=== PATIENT | female | born 1935 | race Caucasian/White ===

== ENCOUNTER 2016-11-01 22:10 | Observation (INO) | payer OTHER ==
--- NOTE | 2016-11-01 22:13 | EDPHY ---
H & P HPI/ROS: HPI CHIEF COMPLAINT: Multiple complaints, left-sided weakness HISTORY OF PRESENT ILLNESS: This patient 80-year-old female significant past medical history for CVA, TIA, hypertension, chronic kidney disease and vertigo, she presents emergency room by EMS, it is noted the patient is a very poor historian. She tells me when I ask her why she came to the emergency room "I do not know" upon further discussion with the patient she does tell me that she has a history of stroke and left-sided weakness, however her weakness of her left side may be more pronounced than normal. She tells me she does not know exactly how long she has been more weak on her left side. She also tells me that she has a fluttering and some discomfort in left side of her chest. Unclear exactly how long this has been going on either. It is noted that she is a very poor historian history review of systems are limited due to this. Her granddaughter just arrived at bedside shortly after arrival her granddaughter is unsure of what prompted a 911 call. It is noted that the daughter should be arriving shortly. Past Medical History: Vertigo, CVA, TIA, hypertension, macular degeneration, chronic kidney disease Past Surgical History: No recent surgical history Social History: Denies daily use of drugs alcohol tobacco products, lives with daughter, lives locally Family History: Noncontributory ROS REVIEW OF SYSTEMS: A comprehensive 10 point review of systems is otherwise negative aside from elements mentioned in the history of present illness. Exam Constitutional triage nursing summary reviewed, vital signs reviewed, awake/ alert. (HYPERTENSIVE) Eyes normal conjunctivae and sclera, EOMI, PERRLA. HENT normal inspection, atraumatic, moist mucus membranes, no epistaxis, neck supple/ no meningismus, no raccoon eyes. Respiratory clear to auscultation bilaterally, normal breath sounds, no respiratory distress, no wheezing. Cardiovascular rate normal, regular rhythm, no murmur, no edema, distal pulses normal. Gastrointestinal large abdominal hernia, soft reducible, non-tender, no rebound, no guarding, normal bowel sounds, no distension, no pulsatile mass. Genitourinary no CVA tenderness. Musculoskeletal no midline vertebral tenderness, full range of motion, no calf swelling, no tenderness of extremities, no meningismus, good pulses, neurovascularly intact. Skin pink, warm, & dry, no rash, skin atraumatic. Neurologic awake, alert and oriented x 3, AAOx3, this patient has a left- sided weakness left upper extremity and left lower extremity 3+ out of 5 left upper extremity 3+ out of 5 left lower extremity, otherwise unremarkable neurological exam. motor intact, sensory intact, CN II-XII intact, normal cerebellar, normal vision, normal speech. Psychiatric normal mood/affect. Heme/Lymph/Immune no lymphadenopathy. Differential Diagnosis: is not limited to in a particular order, CVA, TIA, intracranial bleed, hypertensive urgency, ACS, electrolyte disturbance, infection, dehydration Medical Decision Making: Plan for this patient given her left-sided weakness that is more pronounced than normal however unknown timing of this I have called a stroke alert. Will need to obtain more information from her daughter when she arrives. Re-evaluation: 2234: Stroke Alert called. 2245: At this time the daughters arrived at bedside is given me much more history. She reports that 330 this afternoon she noticed her mother shaking and trouble with her speech, had hard time getting words out, this lasted 5 minutes, the patient did not want come to the emergency room at that time her daughter did notice at that time that she had some left-sided weakness of her leg and arm. The patient feels come to the hospital that time. At 5:30 a.m. she had 2 episodes of vomiting. She went to lay down and slept. She had another 2 episodes of vomiting around 930. That is when her daughter decided to call 911. Upon arrival here in the emergency room she did arrive by ambulance very poor historian does have left-sided upper extremity left lower extremity weakness. Daughter reports to me that time of onset was 330 this afternoon. She has not had any change in her speech since then or other complaints except vomiting nausea and left-sided weakness. To the time of onset witnessed by her daughter 330 this afternoon she is outside of the tPA window. I have canceled the stroke alert at this time. 2252. CT scan of the head without IV contrast. The results of the study are no evidence of acute bleed or stroke.. The study was read by Dr. Bahena. I viewed the images myself on the PACS system. EKG interpretation by me on record in [facility] system. Impression time of EKG 2253, sinus rhythm rate of 71 no acute ischemia visualized. 2328: Spoke with Dr. Price agrees to admit this patient. I have updated the patient and family at bedside. Reason for admission left-sided weakness. Again she is outside of the tPA window this is the reason she was not given tPA. Her time of onset of symptoms according to her daughter was 3:[address] scan has been reviewed shows no evidence of bleed or stroke. Patient be admitted for left-sided weakness. Will need further stroke evaluation. Also noted her blood pressure was high 220s this has improved to 1 80s without acute intervention. 2328: At this time patient is neurological exam is unchanged she has no further progression of neurological deficits. Left-sided is weak. Her initial NIH stroke scale is: 4 (drift left upper arm 2+ and Drift of LLE: 2+ ) Patient agrees for admission. Family updated. Source: Patient, EMS - Medical/Surgical History Hx Asthma: No Hx Chronic Respiratory Disease: No Hx Diabetes: Yes Hx Cardiac Disease: Yes Hx Renal Disease: No Hx Cirrhosis: No Hx Alcoholism: No Hx HIV/AIDS: No Hx Splenectomy or Spleen Trauma: No Other PMH: PMH- CVA- MULTIPLE, HYPOTHYROID, HTN, HLD, ARF, Afib; Hernia, borderline dm. PSH- ABD SURGERY W/ DEHISCENCE 03/16/14; B eye, - Social History Smoking Status: Never smoked Constitutional: Initial Vital Signs Temperature (C) 36.6 C 11/01/16 22:24 Heart Rate 80 11/01/16 22:24 Respiratory Rate 18 11/01/16 22:24 Blood Pressure 202/102 H 11/01/16 22:24 O2 Sat (%) 92 11/01/16 22:24 O2 Delivery Mode Room Air Allergies/Adverse Reactions: Penicillins Allergy (Unknown, Verified 11/06/14 10:17) Doesn't Remember RXN BEES Allergy (Uncoded 08/24/13 14:09) TAPE Allergy (Uncoded 08/24/13 14:09) Home Medications: Medication Instructions Recorded Atorvastatin Calcium [Lipitor 40 40 mg PO DAILY@18 09/13/14 mg (*)] Beta-Carotene(A) W-C & E/Min 1 tab PO DAILY 09/13/14 [Ocuvite] Levothyroxine [Synthroid 125 mcg 125 mcg PO DAILY06 03/16/15 (*)] Metoprolol Tartrate [Lopressor 25 25 mg PO BIDMEAL 09/13/14 mg (*)] Multivitamins [Multivitamin (*)] 1 tab PO DAILY 09/13/14 Omeprazole [Prilosec 20 mg] 20 mg PO DAILY@18 09/13/14 Timolol 0.5% [TIMOPTIC 0.5% (*)] 1 drops EACHEYE BID 09/13/14 amLODIPine BESYLATE [Norvasc 5 mg 5 mg PO DAILY@18 09/13/14 (*)] Acetamn/Diphenhydramine 500/25 2 each PO HS PRN 11/06/14 [Tylenol PM (*)] Aspirin [Aspirin 81mg (*)] 81 mg PO DAILY #0 tab 11/07/14 Clopidogrel Bisulfate [Plavix (*)] 75 mg PO DAILY #30 tab 11/07/14 Cholecalciferol Vit D3 [Vitamin D3 10,000 units PO DAILY 10/02/15 2000 units] Medical Decision Making - Diagnostics Imaging Results: Imaging Impressions Chest X-Ray 11/01/16 22:29 Impression: Normal. Head CT 11/01/16 22:29 Impression: 1. Moderate Atrophy and microvascular ischemic disease. 2. Old left occipital stroke. 3. No evidence for acute stroke on this noncontrasted CT scan. Findings and recommendations discussed with Kevin Hancock MD at 2248 hour, . Final report concurs with initial preliminary interpretation. - Data Points Laboratory Results: Laboratory Results 11/01/16 23:16 11/01/16 22:25 11/01/16 11/01/16 11/01/16 23:16 23:16 22:28 WBC 7.69 10^3/uL 10^3/uL (3.80-9.50) RBC 4.09 10^6/uL L 10^6/uL (4.18-5.33) Hgb 13.5 g/dL g/dL (12.6-16.3) POC Hgb 15.6 gm/dL gm/dL (12.3-15.9) Hct 41.6 % % (38.0-47.0) POC Hct 46 % % (35.5-47.5) MCV 101.7 fL H fL (81.5-99.8) MCH 33.0 pg pg (27.9-34.1) MCHC 32.5 g/dL g/dL (32.4-36.7) RDW 15.8 % H % (11.5-15.2) Plt Count 259 10^3/uL 10^3/uL (150-400) MPV 10.0 fL fL (8.7-11.7) Neut % (Auto) 79.7 % H % (39.3-74.2) Lymph % (Auto) 13.0 % L % (15.0-45.0) [place] % (Auto) 6.0 % % (4.5-13.0) Eos % (Auto) 0.4 % L % (0.6-7.6) Baso % (Auto) 0.5 % % (0.3-1.7) Nucleat RBC Rel Count 0.0 % % (0.0-0.2) Absolute Neuts (auto) 6.13 10^3/uL 10^3/uL (1.70-6.50) Absolute Lymphs (auto) 1.00 10^3/uL 10^3/uL (1.00-3.00) Absolute Monos (auto) 0.46 10^3/uL 10^3/uL (0.30-0.80) Absolute Eos (auto) 0.03 10^3/uL 10^3/uL (0.03-0.40) Absolute Basos (auto) 0.04 10^3/uL 10^3/uL (0.02-0.10) Absolute Nucleated RBC 0.00 10^3/uL 10^3/uL (0-0.01) Immature Gran % 0.4 % % (0.0-1.1) Immature Gran # 0.03 10^3/uL 10^3/uL (0.00-0.10) PT Pending INR Pending POC Sodium 144 mEq/L mEq/L (134-144) Sodium POC Potassium 4.7 mEq/L mEq/L (3.3-5.0) Potassium POC Chloride 112 mEq/L H mEq/L (96-108) Chloride Carbon Dioxide Anion Gap POC BUN 28 mg/dL H mg/dL (7-23) BUN Creatinine POC Creatinine 1.6 mg/dL H mg/dL (0.6-1.2) Estimated GFR Glucose POC Glucose 126 mg/dL H mg/dL (70-100) Calcium 11/01/16 11/01/16 11/01/16 22:25 22:25 22:25 WBC REJ RBC REJ Hgb REJ POC Hgb Hct REJ POC Hct MCV REJ MCH REJ MCHC REJ RDW REJ Plt Count REJ MPV REJ Neut % (Auto) REJ Lymph % (Auto) REJ [place] % (Auto) REJ Eos % (Auto) REJ Baso % (Auto) REJ Nucleat RBC Rel Count REJ Absolute Neuts (auto) REJ Absolute Lymphs (auto) REJ Absolute Monos (auto) REJ Absolute Eos (auto) REJ Absolute Basos (auto) REJ Absolute Nucleated RBC REJ Immature Gran % REJ Immature Gran # REJ PT REJ INR REJ POC Sodium Sodium 141 mEq/L mEq/L (134-144) POC Potassium Potassium 4.7 mEq/L mEq/L (3.5-5.2) POC Chloride Chloride 111 mEq/L H mEq/L (97-110) Carbon Dioxide 19 mEq/l L mEq/l (22-31) Anion Gap 11 mEq/L mEq/L (8-16) POC BUN BUN 22 mg/dL mg/dL (7-23) Creatinine 1.5 mg/dL H mg/dL (0.6-1.0) POC Creatinine Estimated GFR 33 Glucose 126 mg/dL H mg/dL (70-100) POC Glucose Calcium 9.2 mg/dL mg/dL (8.5-10.4) Point of Care Test Results: 11/01/16 22:28 POC Sodium 144 POC Potassium 4.7 POC Chloride 112 H POC BUN 28 H POC Creatinine 1.6 H POC Glucose 126 H Departure - Departure Disposition: [facility] Inpatient Acute Clinical Impression: Left-sided weakness Condition: Good Referrals: Patient,NotPresent [Unknown] - As per Instructions
[2016-11-01] MEDS ORDERED: IOPAMIDOL (ISOVUE 370) 100 ML BTL IV ONE (22:32)
[2016-11-01 22:53] LABS: ANION GAP 11 mEq/L (8-16); CALCIUM 9.2 mg/dL (8.5-10.4); CARBON DIOXIDE 19 mEq/l (22-31); CHLORIDE 111 mEq/L (97-110); CREATININE 1.5 mg/dL (0.6-1.0); GLOMERULAR FILTRATION RATE 33; GLUCOSE 126 mg/dL (70-100); POTASSIUM 4.7 mEq/L (3.5-5.2); SODIUM 141 mEq/L (134-144)
--- NOTE | 2016-11-01 23:01 | CPEKG ---
Heart Rate: 71 RR Interval: 845 P-R Interval: 145 QRSD Interval: 76 QT Interval: 400 QTC Interval: 435 P Caney: 19 QRS Caney: -8 T Wave Caney: 56 EKG Severity - NORMAL ECG - EKG Impression: SINUS RHYTHM Electronically Signed By: Kevin Hancock 02-Nov-2016 06:41:08
[2016-11-01 23:23] LABS: % IMMATURE GRANULYOCYTES 0.4 % (0.0-1.1); ABSOLUTE IMMATURE GRANULOCYTES 0.03 10^3/uL (0.00-0.10); ADD DIFF? NO; ADD MORPH? NO; ADD SCAN? NO; ATYPICAL LYMPHOCYTE FLAG 10 (0-99); FRAGMENT RBC FLAG 0 (0-99); HEMATOCRIT 41.6 % (38.0-47.0); HEMOGLOBIN 13.5 g/dL (12.6-16.3); LEFT SHIFT FLG 0 (0-99); LIPEMIA HEMOLYSIS FLAG 80 (0-99); MEAN CELL HEMOGLOBIN CONCENTR. 32.5 g/dL (32.4-36.7); MEAN CELL VOLUME 101.7 fL (81.5-99.8); PLATELET CLUMPS FLAG 0 (0-99); PLATELET COUNT 259 10^3/uL (150-400); RED BLOOD CELL COUNT 4.09 10^6/uL (4.18-5.33); RED CELL DISTRIBUTION WIDTH 15.8 % (11.5-15.2)
[2016-11-01 23:34] LABS: INR 1.04 (0.83-1.16); PROTIME(PATIENT) 13.5 SEC (12.0-15.0)
[2016-11-02] MEDS ORDERED: ACETAMINOPHEN 325 MG TAB PO PRN
[2016-11-02] MEDS ORDERED: oxyCODONE IR 5 MG TAB PO PRN
[2016-11-02] MEDS ORDERED: ONDANSETRON DISINTEGRATING 4 MG TAB PO PRN
[2016-11-02] MEDS ORDERED: ONDANSETRON 4 MG/2 ML VIAL IVP PRN
[2016-11-02] MEDS ORDERED: ASPIRIN EC 325 MG TAB PO ONE (00:03)
[2016-11-02] MEDS: ATORVASTATIN CALCIUM 40 MG TAB PO SCH ×2 (01:07→08:56)
--- NOTE | 2016-11-02 01:10 | PDGENHP ---
History and Physical - Chief Complaint weakness - History of Present Illness Patient is an 80-year-old female with history of mild dementia, previous CVA, reported history of multiple TIAs, hypertension, hypothyroidism and CKD who was brought to the ED due to apparently new left-sided weakness. History is very limited due to patient's baseline dementia, and on my evaluation of the patient her family was not present. Per report, patient was at home with her daughter and granddaughter when around 3:30 p.m. her daughter noticed patient appeared to becomes somewhat unresponsive, with some nonspecific shaking movements and aphasia. This lasted approximately 5 minutes and then resolved, but patient then demonstrated left-sided weakness, apparently more pronounced than her baseline. Patient did not want to come to the ED for evaluation at this time. About 2 hours later patient then began experiencing some nausea and vomiting. Patient states she does occasionally vomit, mostly whitish clear fluid and it is not associated with any abdominal pain or diarrhea. After this second episode of vomiting, her daughter decided to call EMS and she was brought to the ED at around 10:00 p.m. on to the ED patient was noted to be afebrile, markedly hypertensive. on her initial evaluation, she was noted to have left-sided hemiparesis, so stroke alert was activated. CT head noncontrast was obtained did not reveal any obvious hemorrhage or acute infarct. Labs, including CBC, BMP and troponin, were within normal limits. EKG showed sinus rhythm. Given the patient arrived in the ED greater than 4 hours of symptoms after symptom onset, she was deemed to not be a tPA candidate. she was then admitted to the hospital service for further management. History Information - Allergies/Home Medication List Allergies/Adverse Reactions: Penicillins Allergy (Unknown, Verified 11/06/14 10:17) Doesn't Remember RXN BEES Allergy (Uncoded 08/24/13 14:09) TAPE Allergy (Uncoded 08/24/13 14:09) Home Medications: Atorvastatin Calcium [Lipitor 40 mg (*)] 40 mg PO DAILY@18 09/13/14 [Last Taken 09/30/15 18:00] Beta-Carotene(A) W-C & E/Min [Ocuvite] 1 tab PO DAILY 09/13/14 [Last Taken 09/30 08:00] Levothyroxine [Synthroid 125 mcg (*)] 125 mcg PO DAILY06 09/13/14 [Last Taken 07:00] Metoprolol Tartrate [Lopressor 25 mg (*)] 25 mg PO BIDMEAL 09/13/14 [Last Taken 10/01/15 08:00] Multivitamins [Multivitamin (*)] 1 tab PO DAILY 09/13/14 [Last Taken 10/01/15 09 :00] Omeprazole [Prilosec 20 mg] 20 mg PO DAILY@18 09/13/14 [Last Taken 09/30/15 18: 00] Timolol 0.5% [TIMOPTIC 0.5% (*)] 1 drops EACHEYE BID 09/13/14 [Last Taken 08:00] amLODIPine BESYLATE [Norvasc 5 mg (*)] 5 mg PO DAILY@18 09/13/14 [Last Taken 07/16 18:00] Acetamn/Diphenhydramine 500/25 [Tylenol PM (*)] 2 each PO HS PRN 11/06/14 [Last Taken Unknown] Cholecalciferol Vit D3 [Vitamin D3 2000 units] 10,000 units PO DAILY 10/02/15 [ Last Taken 10/01/15 08:00] I have personally reviewed and updated: family history, medical history, social history, surgical history - Past Medical History Additional medical history: mild dementia, previous CVA, reported history of multiple TIAs, hypertension, hypothyroidism, hypothyoidism, CKD, macular degeneration, large abdominal ventral hernia - Surgical History Additional surgical history: multiple abdominal surgeries. history of gastric perforation. gastric bypass. partial colectomy - Family History Positive for: non-pertinent - Social History Smoking Status: Never smoked Alcohol Use: None Drug Use: None Additional social history: patient lives with her daughter and granddaughter in [place]. Originally from [place] uses a walker to ambulate outside of her home. Review of Systems ROS: 10pt was reviewed & negative except for what was stated in HPI & below Physical Exam Temp Pulse Resp BP Pulse Ox 36.6 C 68 16 161/89 H 92 11/01/16 22:24 11/02/16 00:00 11/02/16 00:00 11/02/16 00:00 11/02/16 00:00 Constitutional: no apparent distress, appears nourished, not in pain, obese Eyes: PERRL, anicteric sclera, EOMI Ears, Nose, Mouth, Throat: moist mucous membranes, hearing normal, ears appear normal, no oral mucosal ulcers Cardiovascular: regular rate and rhythym, no murmur, rub, or gallop, pulses symmetric bilaterally, No JVD, No edema Peripheral Pulses: 2+: dorsalis-pedis (R), dorsalis-pedis (L) Respiratory: no respiratory distress, no rales or rhonchi, clear to auscultation Gastrointestinal: normoactive bowel sounds, soft, non-tender abdomen, other ( Large ventral hernia reducible nontender) Genitourinary: no bladder fullness, no bladder tenderness Skin: warm, normal color, no rashes or abrasions, no fluctuance, no induration, No mottled Neurologic: AAOx3, pronator drift ( left-sided), CN II-XII Intact, other ( 4/5 strength in her left upper extremity, 3/5 in her left lower extremity; 5/5 in right-sided extremities; [id number] intact; sensation to light touch intact bilaterally), No facial droop Psychiatric: interacting appropriately, not encephalopathic, thought process linear Lab Data & Imaging Review 11/01/16 23:16 11/01/16 22:25 WBC 7.69 10^3/uL (3.80-9.50) 11/01/16 23:16 RBC 4.09 10^6/uL (4.18-5.33) L 11/01/16 23:16 Hgb 13.5 g/dL (12.6-16.3) 11/01/16 23:16 POC Hgb 15.6 gm/dL (12.3-15.9) 11/01/16 22:28 Hct 41.6 % (38.0-47.0) 11/01/16 23:16 POC Hct 46 % (35.5-47.5) 11/01/16 22:28 MCV 101.7 fL (81.5-99.8) H 11/01/16 23:16 MCH 33.0 pg (27.9-34.1) 11/01/16 23:16 MCHC 32.5 g/dL (32.4-36.7) 11/01/16 23:16 RDW 15.8 % (11.5-15.2) H 11/01/16 23:16 Plt Count 259 10^3/uL (150-400) 11/01/16 23:16 MPV 10.0 fL (8.7-11.7) 11/01/16 23:16 Neut % (Auto) 79.7 % (39.3-74.2) H 11/01/16 23:16 Lymph % (Auto) 13.0 % (15.0-45.0) L 11/01/16 23:16 [place] % (Auto) 6.0 % (4.5-13.0) 11/01/16 23:16 Eos % (Auto) 0.4 % (0.6-7.6) L 11/01/16 23:16 Baso % (Auto) 0.5 % (0.3-1.7) 11/01/16 23:16 Nucleat RBC Rel Count 0.0 % (0.0-0.2) 11/01/16 23:16 Absolute Neuts (auto) 6.13 10^3/uL (1.70-6.50) 11/01/16 23:16 Absolute Lymphs (auto) 1.00 10^3/uL (1.00-3.00) 11/01/16 23:16 Absolute Monos (auto) 0.46 10^3/uL (0.30-0.80) 11/01/16 23:16 Absolute Eos (auto) 0.03 10^3/uL (0.03-0.40) 11/01/16 23:16 Absolute Basos (auto) 0.04 10^3/uL (0.02-0.10) 11/01/16 23:16 Absolute Nucleated RBC 0.00 10^3/uL (0-0.01) 11/01/16 23:16 Immature Gran % 0.4 % (0.0-1.1) 11/01/16 23:16 Immature Gran # 0.03 10^3/uL (0.00-0.10) 11/01/16 23:16 PT 13.5 SEC (12.0-15.0) 11/01/16 23:16 INR 1.04 (0.83-1.16) 11/01/16 23:16 POC Sodium 144 mEq/L (134-144) 11/01/16 22:28 Sodium 141 mEq/L (134-144) 11/01/16 22:25 POC Potassium 4.7 mEq/L (3.3-5.0) 11/01/16 22:28 Potassium 4.7 mEq/L (3.5-5.2) 11/01/16 22:25 POC Chloride 112 mEq/L (96-108) H 11/01/16 22:28 Chloride 111 mEq/L (97-110) H 11/01/16 22:25 Carbon Dioxide 19 mEq/l (22-31) L 11/01/16 22:25 Anion Gap 11 mEq/L (8-16) 11/01/16 22:25 POC BUN 28 mg/dL (7-23) H 11/01/16 22:28 BUN 22 mg/dL (7-23) 11/01/16 22:25 Creatinine 1.5 mg/dL (0.6-1.0) H 11/01/16 22:25 POC Creatinine 1.6 mg/dL (0.6-1.2) H 11/01/16 22:28 Estimated GFR 33 11/01/16 22:25 Glucose 126 mg/dL (70-100) H 11/01/16 22:25 POC Glucose 126 mg/dL (70-100) H 11/01/16 22:28 Calcium 9.2 mg/dL (8.5-10.4) 11/01/16 22:25 Troponin I < 0.012 ng/mL (0-0.034) 11/01/16 22:25 Visualized and Interpreted Chest x-ray results: Yes Chest X-Ray results: no infiltrate, normal Visualized and Interpreted imaging results: Yes Interpretation: CT head: chronic occipital infarct; no acute infarct or hemorrhage identified Visualized and Interpreted EKG results: Yes EKG Interpretation: Positive for: normal sinsus rhythm (no st/tw wave changes, normal intervals) Assessment & Plan Assessment: Patient is an 80-year-old female with history of mild dementia, previous CVA, reported history of multiple TIAs, hypertension, hypothyroidism and CKD who was brought to the ED for new left-sided weakness. Presentation concerning for acute ischemic cva. Patient arrived outside tPA window. Plan: # acute L-sided weakness Patient has history of previous CVA, but apparently no significant baseline neuro deficit. Today patient does have pronounced L-sided weakness, onset of which appears to have occurred at about 330pm. She arrived in the ED for evaluation of this at about 10pm, well outside the tPA window. CT head shows old infarct, but no acute findings of ischemia or hemorrhage. EKG shows normal sinus rhythm and labs, including troponin, are at her baseline. Suspect new ischemic CVA, although new onset seizure activity or metabolic encephalopathy is also on the differential. Will obtain neuro consult, check MRI brain, TTE, carotid dopplers, lipid panel and TSH; monitor neuro checks. Will also check UA to r/o infectious etiology (CXR negative). Patient has received aspirin and statin in ED. # nausea, vomiting Patient apparently had several episodes of vomiting today, once while in the ED. On my assessment, she denies any abdominal pain, n/v. Electrolytes are within normal limits. Will check LFTs and lipase and provide symptomatic relief prn. # chronic hypertension In the setting of possible acute ischemic cva, will allow for permissive hypertension. # CKD Creatinine appears near baseline, other electrolytes are within normal limits. Will continue to monitor, avoiding nephrotoxic agents. # hypothyroidism Check TSH, resume home synthroid. # dispo: admit to observation for ?CVA work up # gen: Cardiac diet DVT ppx: lovenox if staying > 24 hours Full code, as expressed by the patient on admission
[2016-11-02 05:51] LABS: ALANINE AMINOTRANSFERASE 48 IU/L (9-52); ALBUMIN 4.1 g/dL (3.5-5.0); ALKALINE PHOSPHATASE 73 IU/L (38-126); ANION GAP 10 mEq/L (8-16); ASPARTATE AMINOTRANSFERASE 47 IU/L (14-46); BILIRUBIN,TOTAL 0.7 mg/dL (0.1-1.4); CALCIUM 8.9 mg/dL (8.5-10.4); CARBON DIOXIDE 21 mEq/l (22-31); CHLORIDE 112 mEq/L (97-110); CHOLESTEROL 154 mg/dL (140-220); CHOLESTEROL/HDL RATIO 2.91 RATIO (1.00-4.44); CREATININE 1.5 mg/dL (0.6-1.0); GLOMERULAR FILTRATION RATE 33; GLUCOSE 94 mg/dL (70-100); HIGH DENSITY LIPOPROTEIN 53 mg/dL (40-85); LDL/HDL RATIO 1.28 RATIO (1.00-3.22); LOW DENSITY LIPOPROTEIN 68 mg/dL (80-100); MAGNESIUM 2.3 mg/dL (1.6-2.3); NON-HIGH DENSITY LIPOPROTEIN 101 mg/dL (90-129); POTASSIUM 4.4 mEq/L (3.5-5.2); SODIUM 143 mEq/L (134-144); TOTAL PROTEIN 6.9 g/dL (6.3-8.2); TRIGLYCERIDE 169 mg/dL (35-135); VERY LOW DENSITY LIPOPROTEINS 33 mg/dL (8-25)
[2016-11-02 05:59] LABS: CREATINE KINASE-MB FRACTION 0.48 ng/mL (0-3.19); TROPONIN I < 0.012 ng/mL (0-0.034)
--- NOTE | 2016-11-02 08:47 | PDCONSULT ---
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 There is no family at bedside. I was unable to reach family by telephone. Most of the history is acquired by review of the record. Patient resides with her daughter. Around 330 in the afternoon yesterday, the patient was apparently witnessed to be minimally responsive with some nonspecific shaking and difficulty producing words. Patient had also been nauseated and vomiting. This resolved after about 5 minutes. However, thereafter she was noted to have left-sided weakness. It is unclear if there was some baseline there, however, it was evident per the daughter that the severity or presence of the left-sided weakness was new or worsened. The patient has had a background of spells of nausea and vomiting with impaired awareness that has been extensively investigated in the past by my colleagues as per prior admissions. Patient states that this morning she is still quite nauseated and feeling dizzy. She does have a background of vertigo. However, she is stating that her dizziness and nausea is much worse than usual. Patient does endorse left-sided weakness, though she states this has been present since her initial stroke in the . She also notes some reduced sensation left side that she states is from her stroke in the 1980s as well. However, at times during our interview, the patient states that all of her symptoms are new with the exception of her diminished vision. The patient is not complaining of any chest pain, palpitations, shortness of breath. There has been no indication of any recent illnesses, particularly febrile illnesses. She denies any headache. She has not had any injuries to the head or neck. ROS: As per the HPI, otherwise a complete 12 point ROS was performed and is negative ALLERGIES AND MEDS: As recorded in the EMR - reviewed and reconciled PFSH: As per the intake H&P by from yesterday EXAM: VS reviewed in EMR GEN: WDWN sitting in NAD HEENT: NCAT, sclera anicteric, conjunctiva not injected, MMM, oropharynx clear, no scalp tenderness NECK: supple, nontender, no meningismus CV: some extra beats, normal rate, s1 s2 wo m/r/c/g. Carotid pulses 2+ wo bruit NEURO: NIHSS 6 (-1 LUE motor, -1 LLE motor, -3 VF, -1 sensory) MS: awake, alert, oriented to all spheres. Speech nondysarthric. No language disturbance. Follows commands. Attends to both sides. Episodic and remote memory impaired on casual conversation. Mood euthymic. Good fund of knowledge. CN: pupils 3mm round and reactive. Intolerant of fundoscopy. Her peripheral VFs are impaired with some trace preservation of central vision. Primary gaze centered, though nystagmus is noted on primary gaze. Full ocular motility. Right beating nystagmus with rightward gaze. Facial sensation preserved. Face symmetric. Hearing grossly intact to finger rub. Palatoglossal movements intact. Shoulder shrug and head turn strong. MOTOR: normal bulk/tone. No adventitial movements. UMN pattern weakness at 3+/ 5 in LUE and LLE. SENSORY: diminished sensation in LUE/LLE, otherwise intact LT/PP on right. No extinction. COORD: no ataxia FN/HS. Mika bradykinetic and labored. REFLEX: striatal great toe right, extensor response left. No clonus. DTRS absent. GAIT: deferred to PT safety eval DATA REVIEW: Labs reviewed in EMR LDL 68 TTE pending MRI brain wo pending PERSONALLY INTERPRETED RESULTS AND DATA: IMPRESSION AND RECOMMENDATIONS: // LEFT-SIDED WEAKNESS AND SENSORY LOSS // NAUSEA/VOMITING // SPELL OF BRIEF IMPAIRED AWARENESS // HX ISCHEMIC STROKES WITH CORTICAL BLINDNESS // HX TIAs // HTN // HLD // CKD // DEMENTIA Patient with what sounds like new or worsening left-sided weakness and she also has sensory loss on the left that may be new. Difficult to ascertain what is new vs chronic due to patient's dementia. Regardless, she will need to be evaluated for new ischemic stroke. Her BP was markedly elevated in ED, which could represent reaction to stroke, but also should consider HTN emergency as culprit. Given nausea/vomiting and dizziness, consider posterior circulation ischemia, but also must consider GI illness causing recrudescence of old stroke symptoms. - MRI brain wo - MRA head/neck wo - goal normotension - intervene for SBPs > 160 - LDL at goal < 70, cont statin - long-term A1c goal < 6.5, can be checked and optimized as outpatient - cont ASA/clopidogrel at home doses for now - routine neuro checks and vitals per protocol - patient flagged as LIANNA risk - will need formal outpatient evaluation - toxic/metabolic/infectious screening and supportive measures per primary team - delirium precautions - lights on/window shade up from [id number], regular meal times, sensory optimization, frequent orientation, family at bedside, avoid sedating/disinhibiting medications, nonpharmacologic sleep enhancement with cool/quiet/dark room after 2100. - DVT/GI prophylaxis per primary team - PT/OT evals - stroke education
--- NOTE | 2016-11-02 08:50 | CPEKG ---
Heart Rate: 69 RR Interval: 870 P-R Interval: 156 QRSD Interval: 72 QT Interval: 412 QTC Interval: 442 P [place]: 45 QRS [place]: 2 T Wave [place]: 73 EKG Severity - ABNORMAL ECG - EKG Impression: SINUS RHYTHM EKG Impression: SUPRAVENTRICULAR BIGEMINY Electronically Signed By: Prasad Monroe 02-Nov-2016 16:31:32
[2016-11-02] MEDS ORDERED: ASPIRIN 81 MG CHEWABLE TAB PO SCH (09:00)
[2016-11-02] MEDS ORDERED: ENOXAPARIN 30 MG/0.3 ML SYR SC SCH (09:00)
[2016-11-02] MEDS ORDERED: LEVOTHYROXINE 125 MCG TAB PO SCH (11:00)
[2016-11-02] MEDS ORDERED: TIMOLOL 0.5% 15 ML OPHT.BTL EACHEYE SCH (11:00)
[2016-11-02] MEDS ORDERED: amLODIPine BESYLATE 5 MG TAB PO SCH (11:00)
[2016-11-02 12:58] VITALS: O2SAT 94
[2016-11-02] MEDS ORDERED: amLODIPine BESYLATE 5 MG TAB PO ONE (15:15)
[2016-11-02 15:33] VITALS: BP 162/110; PULSE 70; RESP 14; TEMP 98.4
--- NOTE | 2016-11-02 16:00 | GDS ---
[f rep st] DISCHARGE SUMMARY PATIENT NAME: MONICA SORIA DATE OF : DISCHARGE DIAGNOSES: 1. 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 2. History of cerebrovascular accident. 3. Mild dementia. 4. History of multiple transient ischemic attacks. 5. Hypertension. 6. Hypothyroidism. 7. Chronic kidney disease. 8. Macular degeneration. 9. Large abdominal ventral hernia. HOSPITAL COURSE: Please see admission history and physical. The patient presented with left-sided weakness. This is similar to previous findings. She was markedly hypertensive at 202/102 on presentation. She had a head CT showing moderate atrophy and microvascular ischemic disease, old left occipital stroke. No evidence of acute stroke, no bleed. She had carotid Dopplers showing no hemodynamically significant stenoses. She had a brain MRI showing no evidence of acute infarct, old bilateral occipital infarcts, extensive periventricular and deep hemispheric white matter change that can be consistent with small vessel ischemic disease. She had head MRA and neck MRA that showed no evidence of vascular occlusion or narrowing. She had EKG showing sinus rhythm. She had normal electrolytes and white count. No evidence of fever, infection. The patient was seen by Physical and Occupational Therapy on the first day of hospitalization, doing well. She had no events on telemetry. She is discharged home with an unchanged medication regimen other than increasing her Norvasc to b.i.d. given her significant hypertension. /[id number]/MODL MTDD
--- NOTE | 2016-11-02 16:37 | PDIAF ---
- Diagnosis Diagnosis: tia Code Status: Full Code - Medication Management Discharge Medications: Medications to Continue on Transfer Atorvastatin Calcium [Lipitor 40 mg (*)] 40 mg PO DAILY@18 09/13/14 [Last Taken 09/30/15 18:00] Levothyroxine [Synthroid 125 mcg (*)] 125 mcg PO DAILY06 09/13/14 [Last Taken 07:00] Metoprolol Tartrate [Lopressor 25 mg (*)] 25 mg PO BIDMEAL 09/13/14 [Last Taken 10/01/15 08:00] Omeprazole [Prilosec 20 mg] 20 mg PO DAILY@18 09/13/14 [Last Taken 09/30/15 18: 00] Timolol 0.5% [TIMOPTIC 0.5% (*)] 1 drops EACHEYE DAILY 09/13/14 [Last Taken 08/16 08:00] amLODIPine BESYLATE [Norvasc 5 mg (*)] 5 mg PO DAILY 09/13/14 [Last Taken 18:00] Acetaminophen [Tylenol ES 500 mg (*)] 1,000 mg PO HS 11/02/16 [Last Taken Unknown] Aspirin/Dipyridamole 25/200 [Aggrenox] 1 each PO BID 11/02/16 [Last Taken Unknown] Cholecalciferol Vit D3 [Vitamin D3 (*)] 5,000 units PO DAILY 11/02/16 [Last Taken Unknown] Herbals/Supplements -Info Only 1 ea PO DAILY 11/02/16 [Last Taken Unknown] Multivitamins [Multivitamin (*)] 1 each PO DAILY 11/02/16 [Last Taken Unknown] Vitamin B Complex [B Complex] 1 each PO DAILY 11/02/16 [Last Taken Unknown] amLODIPine BESYLATE [Norvasc 5 mg (*)] 5 mg PO BID #60 tab 11/02/16 [Last Taken Unknown] diphenhydrAMINE [Benadryl 25 MG (*)] 50 mg PO HS 11/02/16 [Last Taken Unknown] Discharge Medications: Refer to the Discharge Home Medication list for PRN reason. - Orders Services needed: Home Care, Physical Therapy Home Care Face to Face: I certify that this patient was under my care and that I had the required [id number] encounter meeting the encounter requirements on the discharge day. My findings support the fact that the patient is homebound as defined in CMS Chapter 7 Medicare Benefits Manual 30.1.1, The condition of the patient is such that there exists a normal inability to leave home and consequently, leaving home would require a considerable and taxing effort. Isolation Type: open patient may 8 - Follow Up Care Current Providers and Referrals: Patient,NotPresent [Unknown] - As per Instructions
[2016-11-02] MEDS ORDERED: METOPROLOL TARTRATE 25 MG TAB PO SCH (18:00)
[2016-11-02] MEDS ORDERED: ATORVASTATIN CALCIUM 40 MG TAB PO SCH (18:00)
[2016-11-02] MEDS ORDERED: PANTOPRAZOLE SODIUM 40 MG TAB PO SCH (18:00)
[2016-11-02] MEDS ORDERED: NON-FORMULARY NEW DRUG (Omeprazole [Prilosec 20 Mg] 20 MG) PO SCH (18:00)
[2016-11-02] MEDS ORDERED: ACETAMINOPHEN 500 MG TAB PO SCH (21:00)
[2016-11-02] MEDS ORDERED: ASPIRIN/DIPYRIDAMOLE CAPSULE PO SCH (21:00)
--- NOTE | 2016-11-03 08:28 | ECHO ---
[id number] + + [address] : : [place] [address] : : [phone] + Adult Echocardiographic Report + ---+ :Name: MONICA ORTEZ EStumer Date: 11/02/2016 01:16 PM : : Hospital Admission Number: [id number] Location: 340: :: 1935 Gender: Female Height: 61 in : :Age: 80 yrs Race: WH Weight: 190 lb : :Reason For Study: Ischemic stroke : : BSA: 1.8 meters2 : + ---+ MMode/2D Measurements \T\ Calculations IVSd: 1.2 cm LVIDd: 4.5 cm FS: 30.2 % Ao root diam: LVPWd: 0.74 cm LVIDs: 3.1 cm EDV(Teich): 2.8 cm 92.6 ml LA dimension: ESV(Teich): 3.9 cm 39.2 ml EF(Teich): 57.7 % LVLd ap4: 6.6 cm SV(MOD-sp4): EDV(MOD-sp4): 40.0 ml 50.0 ml LVLs ap4: 4.8 cm ESV(MOD-sp4): 10.0 ml EF(MOD-sp4): 80.0 % Normal Measurement Values: + + :LVIDd (3.5-5.7cm) IVSd (0.6-1.1cm) LVPWd (0.6-1.1cm) Aortic Root (2.0-3.7cm)Left Atrium (1.5-4.0cm): :LV Vol(d) (76-115ml) LV Vol(s) (29-48ml) Ejec Fraction (50-65%)PV Sergio (0.6- 1.2m/s) TV Sergio (0.4-1.0m/s) : :MV E Sergio (0.8-1.0m/s)MV A Sergio (0.3-1.0m/s)LVOT Sergio (0.7-1.2m/s) Asc Ao Sergio ( 0.9-1.8m/s) : + + Doppler Measurements \T\ Calculations MV E max sergio: 72.1 cm/sec Ao V2 max: 186.7 cm/sec MV A max sergio: 120.4 cm/sec Ao max P.9 mmHg MV E/A: 0.60 Left Ventricle The left ventricle is normal in size. There is mild concentric left ventricular hypertrophy. Left ventricular systolic function is normal. Ejection Fraction = 70-75%. There is Doppler evidence for diastolic dysfunction. Elevated LV filling pressures. No regional wall motion abnormalities noted. Right Ventricle The right ventricle is normal in size and function. Atria The left atrium is mildly dilated. Right atrial size is normal. Injection of contrast documented no interatrial shunt. Mitral Valve The mitral valve is normal. There is no evidence of mitral valve prolapse. There is no mitral valve stenosis. There is mild mitral regurgitation. Tricuspid Valve Normal tricuspid valve. There is trace tricuspid regurgitation. Aortic Valve Aortic valve is trileaflet. Mild calcification. There is no aortic stenosis. There is no aortic insufficiency. Pulmonic Valve The pulmonic valve is normal in structure and function. There is no pulmonic valvular regurgitation. Great Vessels The aortic root is normal size. Pericardium/Pleural There is no pericardial effusion. There is a fat pad seen. Conclusion A complete two-dimensional transthoracic echocardiogram was performed (2D, M-mode, Doppler and color flow Doppler). Left ventricular systolic function is normal. There is mild concentric left ventricular hypertrophy. Ejection Fraction = 70-75%. There is Doppler evidence for diastolic dysfunction and elevated LV filling pressures The left atrium is mildly dilated. Injection of contrast documented no interatrial shunt. Aortic valve is trileaflet. Mild calcification. No or AR There is mild mitral regurgitation. There is trace tricuspid regurgitation. There is a fat pad seen. Compared with 11/07/2014, LV systolic function was previously low normal at 50-55% No obvious cardiac source of embolism on this study. MAME is more sensitive to detect cardiac source of embolism. Final Reading Physician: Dr Emma Cespedes electronically signed on 11/03/2016 08:27 AM Performed By: Anne-Marie Noble, ED
[2016-11-03] MEDS ORDERED: CHOLECALCIFEROL VIT D3 1,000 UNITS TAB PO SCH (09:00)
[2016-11-03] MEDS ORDERED: MULTIVITAMINS 1 EACH TAB PO SCH (09:00)
[2016-11-03] MEDS ORDERED: VITAMIN B COMPLEX 1 EA CAP/TAB PO SCH (09:00)
== END 2016-11-02 16:37 | disposition home or self-care (01) ==
LOC: EDUNIT# → INTOOBSV 23:26 → F3N 11-02 00:58
PROVIDERS: ADMIT Internal Medicine; ATTEND Internal Medicine
DX: G81.94 Hemiplegia, unspecified affecting left nondominant side (principal); F03.90 Unspecified dementia, unspecified severity, without behavioral disturbance, psychotic disturbance, mood disturbance, and anxiety; I12.9 Hypertensive chronic kidney disease with stage 1 through stage 4 chronic kidney disease, or unspecified chronic kidney disease; E03.9 Hypothyroidism, unspecified; N18.9 Chronic kidney disease, unspecified; H35.30 Unspecified macular degeneration; K43.9 Ventral hernia without obstruction or gangrene; Z86.73 Personal history of transient ischemic attack (TIA), and cerebral infarction without residual deficits
CPT/HCPCS: 70450; 70544; 70547; 70551; 92523; 93005; 93306; 93880; 97161; 97166; 99285; G0378; G8978; G8979; G8987; G8988; G9168; G9169; G9170; J1650; 82947-QW; Q9967

== ENCOUNTER 2017-02-12 13:27 | Observation (INO) | payer OTHER ==
[2017-02-12] MEDS ORDERED: NS 1,000 ML IV ONE (14:04)
--- NOTE | 2017-02-12 14:09 | EDPHY ---
H & P Stated Complaint: unresponsive episode at 1225 today, all resolved by [id number] Time Seen by Provider: 02/12/17 13:42 HPI/ROS: CHIEF COMPLAINT: Unresponsive HISTORY OF PRESENT ILLNESS: The patient is an 81-year-old female with a history of CVA, mild dementia and multiple TIAs who was brought in by ambulance for being unresponsive. Paramedics and family state that she was in her normal state of health when she called out to her daughter for help. Her daughter found her limp and falling to the ground. Her daughter helped her to a chair but but the patient repeatedly almost fell out of the chair. When paramedics arrived the patient was completely unresponsive. She was unable to participate in any stroke testing. Had stable vital signs and elevated blood pressure. They placed her in the ambulance and EN route to the emergency department she suddenly became completely lucid. She had no postictal type confusion. She had no seizure-like activity. She had completely normal stroke testing. The patient and family report that similar things have happened before and that she has had multiple MRIs and CT scans done without significant finding. The patient was last admitted in October of this year with left-sided weakness. Head CT showed only a left occipital stroke. She then had carotid Dopplers which were negative and a brain MRI with no acute infarct but old bilateral occipital infarcts. Patient then had an MRI a her head and neck that were negative for vascular occlusion. She has also had multiple cardiac workups all of which the patient and family states have been negative. REVIEW OF SYSTEMS: Constitutional: denies: chills, fever, recent illness, recent injury EENTM: denies: blurred vision, double vision, nose congestion Respiratory: denies: cough, shortness of breath Cardiac: denies: chest pain, irregular heart rate, lightheadedness, palpitations Gastrointestinal/Abdominal: denies: abdominal pain, diarrhea, nausea, vomiting, blood streaked stools Genitourinary: denies: dysuria, frequency, hematuria, pain Musculoskeletal: denies: joint pain, muscle pain Skin: denies: lesions, rash, jaundice, bruising Neurological: denies: headache, numbness, paresthesia, tingling, dizziness, weakness Hematologic/Lymphatic: denies: blood clots, easy bleeding, easy bruising Immunologic/allergic: denies: HIV/AIDS, transplant EXAM: GENERAL: Well-appearing, obese no acute distress. Asking to go home HEAD: Atraumatic, normocephalic. EYES: Pupils equal round and reactive to light, extraocular movements intact, sclera anicteric, conjunctiva are normal. ENT: TMs normal, nares patent, oropharynx clear without exudates. Moist mucous membranes. NECK: Normal range of motion, supple without lymphadenopathy or JVD. LUNGS: Breath sounds clear to auscultation bilaterally and equal. No wheezes rales or rhonchi. HEART: Regular rate and rhythm without murmurs, rubs or gallops. ABDOMEN: Soft, nontender, normoactive bowel sounds. No guarding, no rebound. No masses appreciated. BACK: No CVA tenderness, no spinal tenderness, step-offs or deformities EXTREMITIES: Normal range of motion, no pitting or edema. No clubbing or cyanosis. NEUROLOGICAL: Cranial nerves II through XII grossly intact. Normal speech, normal gait. 5/5 strength, normal movement in all extremities, normal sensation PSYCH: Normal mood, normal affect. SKIN: Warm, dry, normal turgor, no visible rashes or lesions. Source: Patient Exam Limitations: No limitations - Personal History Current Tetanus/Diphtheria Vaccine: Unsure Current Tetanus Diphtheria and Acellular Pertussis (TDAP): Unsure - Medical/Surgical History Hx Asthma: No Hx Chronic Respiratory Disease: No Hx Diabetes: No Hx Cardiac Disease: Yes Hx Renal Disease: No Hx Cirrhosis: No Hx Alcoholism: No Hx HIV/AIDS: No Hx Splenectomy or Spleen Trauma: No Other PMH: PMH- CVA 1986- HYPOTHYROID, HTN, ARF, Afib; Hernia, borderline dm. PSH- ABD SURGERY W/ DEHISCENCE 03/16/14; - Family History Significant Family History: No pertinent family hx - Social History Smoking Status: Never smoked Alcohol Use: Sober Drug Use: None Constitutional: Initial Vital Signs Temperature (C) 36.8 C 02/12/17 13:37 Heart Rate 78 02/12/17 13:37 Respiratory Rate 18 02/12/17 13:37 Blood Pressure 192/94 H 02/12/17 13:37 O2 Sat (%) 92 02/12/17 13:37 O2 Delivery Mode Room Air Allergies/Adverse Reactions: Penicillins Allergy (Unknown, Verified 11/06/14 10:17) Doesn't Remember RXN BEES Allergy (Uncoded 08/24/13 14:09) TAPE Allergy (Uncoded 08/24/13 14:09) Home Medications: Medication Instructions Recorded Atorvastatin Calcium [Lipitor 40 40 mg PO DAILY@18 09/13/14 mg (*)] Levothyroxine [Synthroid 125 mcg 125 mcg PO DAILY06 09/13/14 (*)] Metoprolol Tartrate [Lopressor 25 25 mg PO BIDMEAL 09/13/14 mg (*)] Omeprazole [Prilosec 20 mg] 20 mg PO DAILY@18 09/13/14 Timolol 0.5% [TIMOPTIC 0.5% (*)] 1 drops EACHEYE DAILY 09/13/14 Aspirin/Dipyridamole 25/200 1 each PO BID 11/02/16 [Aggrenox] Herbals/Supplements -Info Only 1 ea PO DAILY 11/02/16 Multivitamins [Multivitamin (*)] 1 each PO DAILY 11/02/16 amLODIPine BESYLATE [Norvasc 5 mg 5 mg PO BID #60 tab 11/02/16 (*)] Acetamn/Diphenhydramine 500/25 2 each PO HS 02/12/17 [Tylenol PM (*)] diphenhydrAMINE [Benadryl 25 MG 50 mg PO HS 02/12/17 (*)] levETIRAcetam [Keppra 500 mg (*)] 500 mg PO BID #60 tab 02/13/17 Medical Decision Making - Diagnostics EKG Interpretation: An EKG obtained and was read and documented in trace view. Please see trace view for full reading and report. Sinus rhythm, no acute ischemic changes Imaging: Discussed imaging studies w/ housecalls nurse Radiologist ED Course/Re-evaluation: Patient remains asymptomatic. We discussed recommended course. I recommended she stay in the hospital for further observation considering the severity of her symptoms today. Her family agrees. The patient eventually was convinced to stay. Lab work is pending. I have paged the hospitalist service. 3:20 p.m. I discussed the case with Dr FRANK Vang who will admit to the medical service. Differential Diagnosis: Partial list of the Differential diagnosis considered include but were not limited to; TIA, seizure, cardiac arrest, syncope and although unlikely based on the history and physical exam, I also considered PE, aneurysm. - Data Points Laboratory Results: Laboratory Results 02/12/17 15:15 02/12/17 15:15 Medications Given: Discontinued Medications Acetaminophen (Tylenol) 650 mg PO Q4HRS PRN PRN Reason: Pain, Mild/Fever, Can Take PO Stop: 08/11/17 16:36 Last Admin: 02/13/17 10:00 Dose: 650 mg Acetaminophen/Diphenhydramine HCl (Tylenol Pm) 2 each PO HS ZOE Stop: 08/11/17 20:59 Last Admin: 02/12/17 20:01 Dose: 2 each Amlodipine Besylate (Norvasc) 5 mg PO BID ZOE Stop: 08/11/17 20:59 Last Admin: 02/13/17 09:59 Dose: 5 mg Atorvastatin Calcium (Lipitor) 40 mg PO DAILY@18 ZOE Stop: 08/11/17 17:59 Last Admin: 02/12/17 18:01 Dose: 40 mg Diphenhydramine HCl (Benadryl) 50 mg PO HS ZOE Stop: 08/11/17 20:59 Last Admin: 02/12/17 20:01 Dose: 50 mg Dipyridamole/Aspirin (Aggrenox) 1 cap PO BID ZOE Stop: 08/11/17 20:59 Last Admin: 02/13/17 09:59 Dose: 1 cap Sodium Chloride (Ns) 1,000 mls @ 0 mls/hr IV ONCE ONE; Wide Open PRN Reason: Protocol Stop: 02/12/17 14:05 Last Admin: 02/12/17 15:46 Dose: 1,000 mls Levetiracetam (Keppra) 500 mg PO BID [facility] Stop: 08/12/17 14:14 Last Admin: 02/13/17 15:09 Dose: 500 mg Levothyroxine Sodium (Synthroid) 125 mcg PO DAILY06 [facility] Stop: 08/12/17 05:59 Last Admin: 02/13/17 05:26 Dose: 125 mcg Metoprolol Tartrate (Lopressor) 25 mg PO BIDMEAL ZOE Stop: 08/11/17 17:59 Last Admin: 02/13/17 09:59 Dose: 25 mg Pantoprazole Sodium (Protonix) 40 mg PO DAILY@1800 [facility] Stop: 08/11/17 17:59 Last Admin: 02/12/17 18:01 Dose: 40 mg Timolol Maleate (Timoptic 0.5%) 1 drops EACHEYE DAILY [facility]OE Stop: 08/12/17 08:59 Last Admin: 02/13/17 10:01 Dose: Not Given Departure - Departure Disposition: [facility] Acute Clinical Impression: Unresponsive episode Condition: Fair
--- NOTE | 2017-02-12 14:22 | CPEKG ---
Heart Rate: 70 RR Interval: 857 P-R Interval: 164 QRSD Interval: 74 QT Interval: 416 QTC Interval: 449 P Elgin: 37 QRS [place]gin: -15 T Wave [place]: 68 EKG Severity - OTHERWISE NORMAL ECG - EKG Impression: SINUS RHYTHM EKG Impression: BORDERLINE LEFT AXIS DEVIATION Electronically Signed By: Neftali Hutson 12-Feb-2017 14:41:59
[2017-02-12 15:30] LABS: % IMMATURE GRANULYOCYTES 0.3 % (0.0-1.1); ABSOLUTE IMMATURE GRANULOCYTES 0.02 10^3/uL (0.00-0.10); ADD DIFF? NO; ADD MORPH? NO; ADD SCAN? NO; ATYPICAL LYMPHOCYTE FLAG 0 (0-99); FRAGMENT RBC FLAG 0 (0-99); HEMATOCRIT 40.8 % (38.0-47.0); LEFT SHIFT FLG 0 (0-99); LIPEMIA HEMOLYSIS FLAG 80 (0-99); MEAN CELL HEMOGLOBIN 32.7 pg (27.9-34.1); MEAN CELL HEMOGLOBIN CONCENTR. 31.9 g/dL (32.4-36.7); MEAN CELL VOLUME 102.5 fL (81.5-99.8); MEAN PLATELET VOLUME 10.1 fL (8.7-11.7); PLATELET CLUMPS FLAG 0 (0-99); PLATELET COUNT 285 10^3/uL (150-400); RED BLOOD CELL COUNT 3.98 10^6/uL (4.18-5.33)
[2017-02-12 15:42] LABS: ANION GAP 15 mEq/L (8-16); CARBON DIOXIDE 18 mEq/l (22-31); CHLORIDE 112 mEq/L (97-110); CREATININE 1.5 mg/dL (0.6-1.0); GLOMERULAR FILTRATION RATE 33; GLUCOSE 57 mg/dL (70-100); POTASSIUM 4.6 mEq/L (3.5-5.2); SODIUM 145 mEq/L (134-144)
[2017-02-12 15:53] LABS: TROPONIN I < 0.012 ng/mL (0.000-0.034)
[2017-02-12] MEDS ORDERED: ONDANSETRON 4 MG/2 ML VIAL IVP PRN (16:37)
[2017-02-12] MEDS ORDERED: ONDANSETRON DISINTEGRATING 4 MG TAB PO PRN (16:37)
[2017-02-12] MEDS ORDERED: D50W 25 GM/50 ML SYR IVP PRN (16:42)
[2017-02-12 17:20] LABS: ALANINE AMINOTRANSFERASE 48 IU/L (9-52); ALKALINE PHOSPHATASE 68 IU/L (38-126); ASPARTATE AMINOTRANSFERASE 55 IU/L (14-46); BILIRUBIN,TOTAL 0.5 mg/dL (0.1-1.4); BILIRUBIN-CONJUGATED 0.5 mg/dL (0.0-0.5); TOTAL PROTEIN 6.5 g/dL (6.3-8.2)
--- NOTE | 2017-02-12 17:29 | GHP ---
[f rep st] HISTORY AND PHYSICAL DATE OF ADMISSION: 02/12/2017 CHIEF COMPLAINT: Unresponsiveness. HISTORY OF PRESENT ILLNESS: This is an 81-year-old female, accompanied by her daughter who provides most of the history as the patient does not remember much of the incident. Apparently her daughter saw her walking out of the bathroom is if she had just used the bathroom with her left leg out that was somewhat shaking. Her daughter knew that she was about to collapse, thus grabbed her and said that she dragged her into her chair. When she put her in her chair her daughter describes that she went somewhat limp, was falling forward when she caught her. Her daughter noted that she was shakin g during this episode. She describes sort of a rhythmic upper extremity shaking. She thus called 9 11. At that point her mother did not have any focal deficits, denies any specific weakness or facia l droop. She was unresponsive though and not answering questions, looking at her daughter as if she was not there. She has a history of multiple strokes as well as TIAs. She was recently admitted h [facility] for a TIA workup which included an MRA of her head and neck, which showed no obvious vascular ab normality, as well as an MRI of her brain which showed bilateral occipital strokes. She also had an echocardiogram on that admission which showed no source of embolus identified, normal EF, mild LA d ilation, and relatively normal valves. She was seen by Dr. Mcnally of Neurology who questioned poss ible seizure activity, but did but did not perform an EEG. She did notably have an EEG here back in 2013 which was reported as normal. When paramedics arrived, they found her to be very hypertensive. There was no note of her pulse at that time. The ECG strip from the ambulance shows sinus rhythm with a rate in the 60s. While she w as in the ambulance she reportedly spontaneously regained her awareness and all of her symptoms reso lved. PAST MEDICAL/SURGICAL HISTORY: 1. Mild dementia. 2. History of strokes in the past. 3. Hypertension. 4. Hypothyroid. 5. Chronic kidney disease, baseline creatinine about 1.5. 6. Macular degeneration. 7. Large ventral hernia. 8. Previous multiple abdominal surgeries. 9. Gastric perforation and bypass. 10. Partial colectomy. MEDICATIONS: Please see medication reconciliation. ALLERGIES: Penicillin, bees, and tape. SOCIAL HISTORY: She never smoked. She lives with her daughter and granddaughter in [place]. She i s originally from [place]. FAMILY HISTORY: Parents are . REVIEW OF SYSTEMS: A 10-point review of systems is conducted and is negative except per HPI. PHYSICAL EXAM: VITAL SIGNS: Blood pressure 175/85, heart rate 87, respiration rate 16, satting at 94% on 2 L, temperature is 36.8. GENERAL: The patient is a pleasant female who is sitting in bed, appears comfortable, in no acute distress. HEENT: Shows her to be normocephalic, atraumatic. CARD IOVASCULAR: Regular rate and rhythm. There are no murmurs, rubs, or gallops. PULMONARY: Lungs cl ear to auscultation bilaterally. ABDOMEN: Shows a very large ventral hernia which is easily reduci ble and not terribly tender to palpation. SKIN: No rash : No Richards. NEUROLOGIC: Exam shows he r to be alert and oriented x3. Cranial nerves 2-12 are intact. Motor and sensory are intact in bot h the upper and lower extremities. PSYCHIATRIC: Normal mood and affect. LABS: CBC is unremarkable. Sodium is 145, bicarb is 18, creatinine is 1.5, glucose is 57. Initial troponin is undetectable. DATA: 1. Old data reviewed per HPI. 2. Head CT shows nothing acute. 3. ECG shows sinus rhythm. She has premature atrial contractions. She has a left axis deviation. Otherwise, this is nonischemic. 4. I reviewed her old chart. IMPRESSION AND PLAN: This is an 81-year-old female with an episode of unresponsiveness. 1. Unresponsiveness episode: Differential includes possible seizure, repeat stroke though this wou ld be very atypical presentation, hypoglycemia (she is mildly hypoglycemic), hypertensive encephalop athy. Also includes cardiac arrhythmia. She has had a significant stroke workup 3 months ago, will not repeat that. We will ask Neurology to re-evaluate her, consider another EEG. For tonight, shanice l not significantly lower her blood pressure but will be more aggressive with blood pressure control starting tomorrow. We will follow her glucoses and recheck blood sugar tomorrow morning. Will mon itor her on telemetry. 2. Hypoglycemia: Glucose is 57. Unclear if this would be severe enough to cause any symptoms. Th ere was no report of hypoglycemia in the field. Will check liver function tests and check q.6 blood glucoses while she is here. 3. Hypernatremia: This is mild. Unsure if this represents recent dehydration. Will allow her to hydrate herself and recheck tomorrow. 4. Non-anion gap metabolic acidosis: Also mild. This is worse than she has had in the past. This may be renal tubular acidosis due to her renal failure. Will recheck tomorrow. 5. Chronic kidney disease: She is at her baseline. Will be careful with nephrotoxins. 6. History of a cerebrovascular accident: She is on appropriate medications including statin, Aggr enox, Lopressor. It seems as though her blood pressure may not be optimally controlled at this poin t though. 7. We discussed the utility of cardiac stress test. I feel the utility is very limited given her r enal disease making a catheterization very unlikely without a clear acute myocardial infarction. 8. Neck and low back pain: This has been somewhat persistent. Family is very interested in pursui ng possibly steroid injections. They have requested that we get imaging to potentially help guide t his. I have ordered an MRI of her C-spine and L-spine at their request. 9. Code status is full. 10. Venous thromboembolism risk is high; however, she is admitted as observation. If she becomes a n inpatient we will start prophylaxis. /[id number]/MODL
[2017-02-12 17:31] LABS: TROPONIN I < 0.012 ng/mL (0.000-0.034)
[2017-02-12] MEDS ORDERED: NON-FORMULARY NEW DRUG (Omeprazole [Prilosec 20 Mg] 20 MG) PO SCH (18:00)
[2017-02-12] MEDS ORDERED: PANTOPRAZOLE SODIUM 40 MG TAB PO SCH (18:00)
[2017-02-12] MEDS ORDERED: ATORVASTATIN CALCIUM 40 MG TAB PO SCH (18:00)
[2017-02-12] MEDS: METOPROLOL TARTRATE 25 MG TAB PO SCH (18:01)
[2017-02-12] MEDS: amLODIPine BESYLATE 5 MG TAB PO SCH (20:00)
[2017-02-12] MEDS: ASPIRIN/DIPYRIDAMOLE CAPSULE PO SCH (20:01)
[2017-02-12] MEDS ORDERED: diphenhydrAMINE 25 MG CAP PO SCH (21:00)
[2017-02-12] MEDS ORDERED: ACETAMN/DIPHENHYDRAMINE 500/25MG TAB PO SCH (21:00)
[2017-02-13 05:13] LABS: % IMMATURE GRANULYOCYTES 0.2 % (0.0-1.1); ABSOLUTE IMMATURE GRANULOCYTES 0.01 10^3/uL (0.00-0.10); ADD DIFF? NO; ADD MORPH? NO; ADD SCAN? NO; ATYPICAL LYMPHOCYTE FLAG 10 (0-99); FRAGMENT RBC FLAG 0 (0-99); HEMATOCRIT 37.6 % (38.0-47.0); HEMOGLOBIN 11.9 g/dL (12.6-16.3); LEFT SHIFT FLG 0 (0-99); LIPEMIA HEMOLYSIS FLAG 80 (0-99); MEAN CELL HEMOGLOBIN 32.7 pg (27.9-34.1); MEAN CELL HEMOGLOBIN CONCENTR. 31.6 g/dL (32.4-36.7); MEAN CELL VOLUME 103.3 fL (81.5-99.8); MEAN PLATELET VOLUME 10.1 fL (8.7-11.7); PLATELET CLUMPS FLAG 0 (0-99); PLATELET COUNT 246 10^3/uL (150-400); RED BLOOD CELL COUNT 3.64 10^6/uL (4.18-5.33); RED CELL DISTRIBUTION WIDTH 16.2 % (11.5-15.2)
[2017-02-13] MEDS: ACETAMINOPHEN 325 MG TAB PO PRN ×2 (05:26→10:00)
[2017-02-13] MEDS ORDERED: LEVOTHYROXINE 125 MCG TAB PO SCH (06:00)
[2017-02-13 06:01] LABS: ALANINE AMINOTRANSFERASE 47 IU/L (9-52); ALBUMIN 3.2 g/dL (3.5-5.0); ALKALINE PHOSPHATASE 61 IU/L (38-126); ANION GAP 11 mEq/L (8-16); ASPARTATE AMINOTRANSFERASE 41 IU/L (14-46); BILIRUBIN,TOTAL 0.4 mg/dL (0.1-1.4); CARBON DIOXIDE 19 mEq/l (22-31); CHLORIDE 112 mEq/L (97-110); CREATININE 1.6 mg/dL (0.6-1.0); GLOMERULAR FILTRATION RATE 31; GLUCOSE 91 mg/dL (70-100); POTASSIUM 4.1 mEq/L (3.5-5.2); SODIUM 142 mEq/L (134-144); TOTAL PROTEIN 5.6 g/dL (6.3-8.2)
[2017-02-13] MEDS ORDERED: TIMOLOL 0.5% 15 ML OPHT.BTL EACHEYE SCH (09:00)
[2017-02-13] MEDS: METOPROLOL TARTRATE 25 MG TAB PO SCH (09:59)
[2017-02-13] MEDS: amLODIPine BESYLATE 5 MG TAB PO SCH (09:59)
[2017-02-13] MEDS: ASPIRIN/DIPYRIDAMOLE CAPSULE PO SCH (09:59)
[2017-02-13 11:37] VITALS: BP 124/70; PULSE 68; RESP 18; TEMP 98; O2SAT 92
--- NOTE | 2017-02-13 14:14 | NEUROPROG ---
Assessment: [id number] CC: Dr. Clarke consulted neurology for transient alteration of awareness. Results were placed in the EMR for his review. HPI: This patient was initially seen 02/13/17. She was admitted 02/12/17 for an episode of altered awareness. The patients daughter witnessed the event and provided most of the history. Her daughter witnessed the patient walking out of the bathroom with her left leg shaking. The patient required help to get to a chair and sit down. The patients arms then started shaking so the daughter called 911. The patient was confused during the event but denied any focal neurologic deficits. She was admitted to [facility] in October 2016 for an episode of nonspecific shaking and problems producing speech for 5 minutes followed by left sided weakness. It was also reported at that time that the patient had prior history of recurrent spells of altered awareness but that prior seizure evaluation had been unremarkable. A stroke evaluation at that time was unremarkable except for the telemetry showing afib. She has prior bilateral occipital strokes causing cortical blindness so I suspect her afib was the cause. The patient reported she had been on coumadin in the past but this was stopped and she was changed to aspirin and aggrenox after being admitted to [facility] in [place], [place] in the past. Her daughter believes she likely had bleeding that prevented continuing the coumadin. She also has chronic neck and back pain so the hospitalist ordered C/L MRIs to further evaluate. Her blood pressure was elevated on admission but that has improved. PMHx:prior bilateral occipital strokes causing cortical blindness, paroxysmal afib (pt reported not able to continue coumadin for stroke prevention in past due to bleeding), HTN, hypothyroid, CKD, macular degeneration, ventral hernia, previous abdominal surgeries, gastric perforation and bypass, partial colectomy SHx: no tobacco FHx: parents ROS: Pt denied acute fever, total vision loss, active severe chest pain, respiratory failure, total body severe rash, total bowel/bladder incontinence, psychosis, active seizures, or active bleeding O: VS bp 124/70 P 68 RR 18 Satting 92% on RA, Temp 36.7C General: Alert Eyes: Fundoscopic exam not able to visualize optic disks CV: Heart RRR, no murmur, no carotid bruit Lungs: Clear to auscultation bilaterally, no rhonchi or rales Neuro: - Mental: . Oriented x person/place/date . concentration appears normal . speech fluency/comprehension normal . memory appears normal . fund of knowledge appear intact - Cranial Nerves: . II: Pupils poorly reactive to light, pt not able to see due to prior occipital strokes . III/IV/: EOMI, no Ptosis . V: facial sensation intact to LT . VII: face symmetric to eye closure and smile . VIII: hearing intact to conversation . IX/X: uvula raises symmetrically . XI: SCM 5/5 B/L strength . XII: tongue protrudes midline w/nl strength - Motor: . Tone: normal tone in all 4 extremity . Strength: no pronator drift, strength 5/5 throughout (B/L delt, bic, tri, hand contact lens curve grinder, hf/he, df/pf) - Reflexes: B/L bic/BR/patella trace/4 - Sensory: all 4 extremity intact to light touch - Coord: normal with testing - Gait: deferred Labs: 02/13/17- TSH low Rads: 11/02/16- Brain MRI w/o con: no acute stroke, old B/L occipital stroke, extensive CMVD, atrophy 11/02/16- brain/neck MRA: no significant findings 11/01/16- TTE: afib seen 11/02/16- 24 hour telemetry: no afib seen 02/12/17- Head CT w/o con: No hemorrhage. Nothing acute identified. Old left occipital stroke. (I personally visualized the images on 02/13/17) 02/12/17- MRI C-spine w/o con: Overall mild degenerative cervical spine disease at multiple levels 02/12/17- MRI L-spine w/o con: 1. Interval worsening of spondylolisthesis at L2- L3. However, this did not contribute to worsening canal stenosis. 2. Otherwise, multilevel degenerative disk and facet disease all of which are relatively unchanged compared to 2014. Assessment: 1. Possible Focal Seizure: Her episode of left leg then bilateral arm jerking and confusion seems most likely to be a focal seizure from her dementia or prior stroke. These symptoms may also be pre-syncope or hypertensive emergency. I would recommend a trial of Keppra to see if that suppresses these episodes given seizure is the most likely cause of the symptoms 2. Prior Bilateral Occipital Stroke: Prior stroke evaluation in October 2016 reported to be unremarkable (except her vital sign review in October 2016 did report seeing afib) and her current episode on 02/12/17 would be very atypical for a recurrent stroke (involuntary shaking of left leg and both arms). I do not feel a repeat stroke evaluation is needed at this time. 3. Low TSH: recommend her PCM address any thyroid dysfunction as this can worsen cognition. 4. Paroxysmal Afib: Pt and her daughter reported she was on coumadin in the past but that [facility] stopped the coumadin and changed her to Aggrenox plus aspirin. The daughter believes this was due to a bleeding complication. Plan: - Begin Keppra 500 mg bid given concern for seizure - F/U in 1-2 weeks in neurology clinic for EEG and to monitor response to Keppra - Seizure precautions to include no driving until event free for 90 days (pt not driving) - Work closely with PCM to ensure blood pressure < 140/90, H1AC < 7.0, and LDL < 70 and to ensure no thyroid dysfunction (low TSH) - Agree with statin and aggrenox/aspirin for stroke prevention If the patient is still in the hospital tomorrow I will check on her but she can be discharged from a neurology perspective. Objective: Vital Signs Temp Pulse Resp BP Pulse Ox 36.7 C 68 18 124/70 H 92 02/13/17 11:34 02/13/17 11:34 02/13/17 11:34 02/13/17 11:34 02/13/17 11:34 Laboratory Results 02/13/17 04:37 02/13/17 04:37 02/12/17 02/13/17 02/14/17 05:59 05:59 05:59 Intake Total 1200 Balance 1200 Allergies/Adverse Reactions: Penicillins Allergy (Unknown, Verified 11/06/14 10:17) Doesn't Remember RXN BEES Allergy (Uncoded 08/24/13 14:09) TAPE Allergy (Uncoded 08/24/13 14:09)
[2017-02-13] MEDS ORDERED: levETIRAcetam 500 MG TAB PO SCH (14:15)
--- NOTE | 2017-02-13 16:01 | GDS ---
[f rep st] DISCHARGE SUMMARY CONSULTATION: Neurology. ALL DIAGNOSES: 1. Unresponsiveness episode, suspected to be a seizure. 2. History of paroxysmal atrial fibrillation. Not on anticoagulation due to reported bleeding comp lication. 3. Hypothyroid, with low TSH, on Synthroid. 4. History of cerebrovascular accidents in the bilateral occipital lobes. 5. Chronic kidney disease. 6. Non-anion gap metabolic acidosis. 7. Hypoglycemia. 8. Hyponatremia. 9. Neck and low back pain. HOSPITAL COURSE BY PROBLEM: 1. Unresponsiveness episode: Not really consistent with cardiac in etiology. She did have some rh ythmic shaking. Seen by Neurology, who feels that it is appropriate to empirically treat for seizur es. Dr. Clancy has recommended Keppra. No standard seizure precautions, including no driving. Ross w up with him as an outpatient. She did have an EEG here in 2013, which was negative for seizures, though clearly this does not rule them out. She has bilateral strokes, which are risk factors for h aving seizures. She did not have any arrhythmias seen on telemetry. Cardiac enzymes were undetecta ble throughout her hospitalization. Other considerations include hypernatremia, hypoglycemia, hyper tension. These seem less likely to cause such an episode however. 2. Low TSH: She is on Synthroid. She should follow up with her PCP to potentially lower this dose . 3. Chronic kidney disease. She is at her baseline. 4. Neck and low back pain: Her daughter request that she get an MRI, so she will be potentially pr epared to have an epidural steroid injection. I have ordered these, which show degenerative changes with some mildly worsening spondylolisthesis without spinal cord compression in her L-spine. She c an follow up with her PCP to get a referral to potentially have a steroid injection. 5. Paroxysmal atrial fibrillation: Reportedly not on anticoagulation due to bleeding. She is on a spirin and Aggrenox for cerebrovascular accident prophylaxis. 6. History of CVA: Aspirin, Aggrenox, and a statin. 7. Chronic kidney disease: At baseline. BILLING: I spent more than 30 minutes on the day of discharge coordinating care. /[id number]/MODL
== END 2017-02-13 16:14 | disposition home or self-care (01) ==
LOC: EDUNIT# → F3N 17:10
PROVIDERS: ADMIT Hospitalist; ATTEND Hospitalist
DX: R41.82 Altered mental status, unspecified (principal); E03.9 Hypothyroidism, unspecified; N18.9 Chronic kidney disease, unspecified; E87.2 Acidosis; E16.2 Hypoglycemia, unspecified; E87.1 Hypo-osmolality and hyponatremia; M54.2 Cervicalgia; M54.5 Low back pain; Z86.79 Personal history of other diseases of the circulatory system; Z86.73 Personal history of transient ischemic attack (TIA), and cerebral infarction without residual deficits
CPT/HCPCS: 70450; 72141; 72148; 93005; 96360; 97161; 97165; 99285; G0378; G8987; G8988

== ENCOUNTER 2017-09-29 23:07 | Observation (INO) | payer OTHER ==
[2017-09-29] MEDS ORDERED: NS 1,000 ML IV ONE (23:11)
[2017-09-29 23:18] LABS: PLATELET COUNT 274 10^3/uL (150-400)
--- NOTE | 2017-09-29 23:26 | EDPHY ---
H & P Time Seen by Provider: 09/29/17 23:11 HPI/ROS: HPI CHIEF COMPLAINT: Acute onset confusion HISTORY OF PRESENT ILLNESS: This patient 81-year-old female she presents emergency room by EMS after a stroke alert was called in the field. Upon arrival to the emergency room I did Greet her immediately and did a brief stroke exam. She has trouble conveying how she is feeling. She does move everything but does not follow commands she does not answer my questions appropriately. According to EMS they report that she woke up at 10:00 p.m. And her daughter states that she was confused and somewhat agitated she then fell out of the chair that she was in and EMS and by report may be possible brief seizure activity. She woke up with confusion. Upon arrival to the emergency room she is confused, does not follow my commands , appears to maybe have expressive aphasia. Daughter is not at bedside yet. She will proceed right to CT scan without contrast. Additionally I will consult [facility]. Past Medical History: History of chronic kidney disease, vertigo, TIA, CVA, AFib, hypertension, seizure activity, thyroid disease, mild dementia, seizure on Keppra Past Surgical History: No recent surgical history Social History: Lives locally, denies drugs alcohol tobacco. Family History: Noncontributory ROS REVIEW OF SYSTEMS: A comprehensive 10 point review of systems is otherwise negative aside from elements mentioned in the history of present illness. Exam Constitutional triage nursing summary reviewed, vital signs reviewed, awake/ alert. Eyes normal conjunctivae and sclera, EOMI, PERRLA. HENT normal inspection, atraumatic, moist mucus membranes, no epistaxis, neck supple/ no meningismus, no raccoon eyes. Respiratory clear to auscultation bilaterally, normal breath sounds, no respiratory distress, no wheezing. Cardiovascular rate normal, regular rhythm, no murmur, no edema, distal pulses normal. Gastrointestinal soft, non-tender, no rebound, no guarding, normal bowel sounds, no distension, no pulsatile mass. Genitourinary no CVA tenderness. Musculoskeletal no midline vertebral tenderness, full range of motion, no calf swelling, no tenderness of extremities, no meningismus, good pulses, neurovascularly intact. Skin pink, warm, & dry, no rash, skin atraumatic. Neurologic confused, moves everything however does not follow commands has trouble with her speech getting out, Heme/Lymph/Immune no lymphadenopathy. Differential Diagnosis: Includes but is not limited to in a particular order TIA, CVA, wake-up stroke, seizure, postictal state, electrolyte disturbance, infection, intracranial bleed Medical Decision Making: Plan for this patient will proceed with directly to CT scan head without contrast for stroke alert, additionally will consult [facility] for evaluation. The patient will most likely not be a tPA candidate given wake up symptoms, and potentially seizure activity. Re-evaluation: 2306: Time of arrival 230: Time I evaluated her. 2307: Initial NIH stroke scale: 4 (severe aphasia, and answering questions inappropriately) 2310: directly to CT Head w/o 2315: Spoke with Dr. Chatterjee with [facility] to review the case 2320: Patient back in ER room #2, from CT. 2332: Discussed this case extensively with Dr. Chatterjee with [facility]. Patient is not a tPA candidate. She is rapidly improving in terms of her mental state she now answers questions appropriately moves everything appropriately. It is felt that most likely she had a postictal state with seizure activity. Plan will be for admission to the hospital for observation, IV Keppra, and closely watch her blood pressures was noted to be high here. Explain this to the patient as well as family at bedside. They understand CT head without contrast called to me by Dr. Mackenzie Fong is negative for acute bleed or evidence of stroke. 2350: I spoke with the hospitalist service Dr. Grimm, agrees to admit the patient for most likely seizure activity with postictal state leading to confusion. Not a tPA candidate. No evidence of acute stroke here in the emergency room. Patient noted be hypertensive 200/100. I have ordered her 10 mg IV hydralazine. It sounds like she is not compliant with her home medications. Additionally I have given her a g of Keppra. Will admit to PCU observation for seizure-like activity and hypertension. EKG interpretation by me on record in [facility] system. Impression time of [id number], sinus rhythm rate of 70 no acute ischemic change. No signs of cardiac arrhythmia. Source: Patient, EMS - Medical/Surgical History Hx Asthma: No Hx Chronic Respiratory Disease: No Hx Diabetes: No Hx Cardiac Disease: Yes Hx Renal Disease: No Hx Cirrhosis: No Hx Alcoholism: No Hx HIV/AIDS: No Hx Splenectomy or Spleen Trauma: No Other PMH: PMH- CVA 1986- HYPOTHYROID, HTN, ARF, Afib; Hernia, borderline dm. PSH- ABD SURGERY W/ DEHISCENCE 03/16/14; - Social History Smoking Status: Never smoked Constitutional: Initial Vital Signs Temperature (C) 36.9 C 09/29/17 23:00 Heart Rate 72 09/29/17 23:00 Respiratory Rate 18 09/29/17 23:00 Blood Pressure 187/94 H 09/29/17 23:00 O2 Sat (%) 92 09/29/17 23:00 O2 Delivery Mode Room Air Allergies/Adverse Reactions: Penicillins Allergy (Unknown, Verified 09/29/17 23:32) Doesn't Remember RXN BEES Allergy (Uncoded 09/29/17 23:32) TAPE Allergy (Uncoded 09/29/17 23:32) Home Medications: Medication Instructions Recorded Atorvastatin Calcium [Lipitor 40 40 mg PO DAILY@18 09/13/14 mg (*)] Levothyroxine [Synthroid 125 mcg 125 mcg PO DAILY06 09/13/14 (*)] Metoprolol Tartrate [Lopressor 25 25 mg PO BID 09/13/14 mg (*)] Omeprazole [Prilosec 20 mg] 20 mg PO DAILY@18 09/13/14 Timolol 0.5% [TIMOPTIC 0.5% (*)] 1 drops EACHEYE DAILY 09/13/14 Aspirin/Dipyridamole 25/200 1 each PO BID 11/02/16 [Aggrenox] Herbals/Supplements -Info Only 1 ea PO DAILY 11/02/16 Multivitamins [Multivitamin (*)] 1 each PO DAILY 11/02/16 amLODIPine BESYLATE [Norvasc 5 mg 5 mg PO BID #60 tab 11/02/16 (*)] Acetamn/Diphenhydramine 500/25 2 each PO HS 02/12/17 [Tylenol PM (*)] diphenhydrAMINE [Benadryl 25 MG 50 mg PO HS 02/12/17 (*)] levETIRAcetam [Keppra 500 mg (*)] 500 mg PO BID #60 tab 02/13/17 Cholecalciferol Vit D3 [Vitamin D3 1,000 units PO DAILY 09/30/17 (*)] Medical Decision Making - Data Points Laboratory Results: Laboratory Results 09/29/17 23:00 09/29/17 23:00 Medications Given: Discontinued Medications Acetaminophen (Tylenol) 650 mg PO Q4HRS PRN PRN Reason: Pain, Mild/Fever, Can Take PO Stop: 03/28/18 23:49 Last Admin: 09/30/17 00:29 Dose: 650 mg Amlodipine Besylate (Norvasc) 5 mg PO BID ZOE Stop: 03/29/18 12:59 Last Admin: 09/30/17 13:03 Dose: 5 mg Dipyridamole/Aspirin (Aggrenox) 1 cap PO BID ZOE Stop: 03/29/18 12:59 Last Admin: 09/30/17 13:44 Dose: 1 cap Heparin Sodium (Porcine) (Heparin Sc Injection) 5,000 unit SC Q8 ZOE Stop: 03/29/18 05:59 Last Admin: 09/30/17 05:44 Dose: 5,000 unit Hydralazine HCl (Apresoline) 10 mg IVP EDNOW ONE Stop: 09/29/17 23:43 Last Admin: 09/29/17 23:44 Dose: 10 mg Sodium Chloride (Ns) 1,000 mls @ 0 mls/hr IV ONCE ONE; Wide Open PRN Reason: Protocol Stop: 09/29/17 23:12 Last Admin: 09/29/17 23:33 Dose: 1,000 mls Levetiracetam (Keppra (Premix)) 100 mls @ 400 mls/hr IV EDNOW ONE Stop: 09/29/17 23:57 Last Admin: 09/29/17 23:58 Dose: 100 mls Levetiracetam (Keppra) 500 mg PO BID ZOE Stop: 03/29/18 12:59 Last Admin: 09/30/17 13:03 Dose: 500 mg Levothyroxine Sodium (Synthroid) 125 mcg PO DAILY06 ZOE Stop: 03/29/18 12:59 Last Admin: 09/30/17 13:03 Dose: 125 mcg Metoprolol Tartrate (Lopressor) 25 mg PO BID ZOE Stop: 03/29/18 12:59 Last Admin: 09/30/17 13:03 Dose: 25 mg Departure - Departure Disposition: [facility] Acute Clinical Impression: Seizure Hypertension Qualifiers: Hypertension type: unspecified Qualified Code(s): I10 - Essential (primary) hypertension Condition: Fair
[2017-09-29] MEDS ORDERED: hydrALAZINE 20 MG/ML VIAL IVP ONE (23:42)
[2017-09-29] MEDS ORDERED: levETIRAcetam 1000MG/NACL 100 ML IV ONE (23:43)
[2017-09-29 23:47] LABS: INR 0.97 (0.83-1.16); PROTIME(PATIENT) 13.1 SEC (12.0-15.0)
[2017-09-29] MEDS ORDERED: LORazepam 2 MG/ML INJ IVP PRN (23:50)
[2017-09-29] MEDS ORDERED: ONDANSETRON 4 MG/2 ML VIAL IVP PRN (23:50)
[2017-09-29] MEDS ORDERED: ACETAMINOPHEN 325 MG TAB PO PRN (23:50)
[2017-09-29] MEDS ORDERED: hydrALAZINE 20 MG/ML VIAL IVP PRN (23:53)
--- NOTE | 2017-09-29 23:55 | CPEKG ---
Heart Rate: 70 RR Interval: 857 P-R Interval: 160 QRSD Interval: 80 QT Interval: 428 QTC Interval: 462 P Concord: 26 QRS Concord: -12 T Wave Concord: 74 EKG Severity - NORMAL ECG - EKG Impression: SINUS RHYTHM Electronically Signed By: José Snyder 30-Sep-2017 16:44:50
[2017-09-30] MEDS ORDERED: HEPARIN 10,000 UNIT/10 ML MDV (1,000 UNIT/ML) ONE (00:06)
[2017-09-30] MEDS: HEPARIN 5,000 UNIT/0.5 ML SYR SC SCH ×2 (00:10→05:44)
--- NOTE | 2017-09-30 01:57 | GHP ---
[f rep st] HISTORY AND PHYSICAL DATE OF ADMISSION: 09/30/2017 SOURCE: The patient was able to provide some of the history. However, she presented altered and does not recall events leading to her ED arrival. Overall , she does note a history of memory deficit and daughter is at bedside and supplements history. Case discussed with ED provider. CHIEF COMPLAINT: Altered mental status, fall. HISTORY OF PRESENT ILLNESS: This is a pleasant 81-year-old female with past medical history significant for several CVAs, with history of paroxysmal atrial fibrillation on Aggrenox, history of mild dementia, seizure disorder on Keppra, chronic kidney disease stage 3, hypertension with history of hypertensive encephalopathy, macular degeneration, large ventral hernia, hypothyroidism, hyperlipidemia, and glaucoma, who presents to the emergency department today from home after daughter called EMS. The patient woke up around 10 o'clock this evening and did not feel well. The patient subsequently sat down and daughter reports that she noticed some eye fluttering and shaking. Patient subsequently leaned to the right and fell forward on the floor. EMS was called and they noted the patient had a few moments of tonic-clonic activity. The patient did not have any bladder or bowel incontinence. She was confused and appeared to have aphasia. Patient reports that she does remember EMS arrival, but she found that she could not say any words, although she was able to process and attempt to respond. The patient was brought into the emergency department as a stroke alert. She was taken to CT scan. [facility] evaluated the patient and her symptoms were rapidly improving. At time of my interview, patient reports that she is back to normal, daughter confirms, and she has no complaints except for headache. Daughter reports that the patient is intermittently compliant with her evening dose of Keppra. In the evening, patient is responsible for taking her own medications and does not have reminders, although patient does live with her daughter and granddaughter. In the morning, daughter is sure to remind the patient to take her morning doses of medications and she has her pills laid out. Daughter states that from this time forward she will be sure to monitor patient's intake of all of her daytime and evening medications. Over the past course of the past month, daughter states that the patient has had several episodes of "strokes at home." The daughter describes episodes of patient to becoming increasingly confused and subsequently having some eye fluttering and tonic-clonic type activity with postictal confusion and some agitation that does resolve after several minutes. Following each of these episodes, patient has refused to go to the emergency department for evaluation. REVIEW OF SYSTEMS: The patient reports that she feels cold most of the time. Denies any fevers. No sweats. SKIN: No new rashes or sores. ENT: Patient reports occasional sneezing, but no rhinorrhea. No sore throat. EYES: Patient does have a history of macular degeneration and she is losing her central vision. No ocular pain. No additional ocular changes from baseline. CV: Patient denies any chest pain, palpitations. RESPIRATORY: Patient denies any shortness of breath or cough. GI: Patient with a large ventral abdominal hernia. She denies any nausea, vomiting, or increased abdominal pain. : No dysuria or hematuria. MUSCULOSKELETAL: Patient denies any joint or muscle pain at this time. NEURO: Patient does complain of a headache. See HPI for additional details. She denies any numbness or tingling. PSYCH: Patient denies anxiety, depression. Remainder ROS negative except as noted above. ALLERGIES: To penicillin, bee stings, and tape. HOME MEDICATIONS: As per EMR. Keppra 500 mg p.o. twice daily, Benadryl 50 mg p.o. h.s., Norvasc 5 mg p.o. b.i.d., timolol 1 drop in each eye daily, omeprazole 20 mg p.o. daily, multivitamin 1 tab p.o. daily, metoprolol 25 mg p.o. b.i.d. with meals, levothyroxine 125 mcg p.o. daily, Lipitor 40 mg p.o. daily, aspirin with dipyridamole 20/200, Aggrenox, Tylenol p.m. 2 tabs p.o. h.s. PAST MEDICAL HISTORY: Significant for history of CVA and TIA, seizures, paroxysmal atrial fibrillation, hypertension with history of hypertensive encephalopathy, hypothyroidism, hyperlipidemia, glaucoma, macular degeneration, CKD stage 3, baseline creatinine of 1.5, mild dementia, large ventral hernia. PAST SURGICAL HISTORY: Significant for gastric bypass with perforation, multiple abdominal surgeries due to dehiscence, partial colectomy. FAMILY HISTORY: Negative for seizures. Parents . SOCIAL HISTORY: Patient lives with her daughter and granddaughter. She does not smoke, drink, or use drugs. CODE STATUS: Full. Patient with advanced directives and her daughter is ANA. PHYSICAL EXAMINATION: VITAL SIGNS: Upon arrival to the emergency department, blood pressure 187/95, heart rate 72, respiratory rate 18, O2 saturation 92% on room air, with temperature 36.9. Current vitals at time of interview: Blood pressure 168/103, heart rate was 75, respiratory rate 16, O2 saturation 95% on room air. GENERAL: No acute distress. Pleasant, obese, adult elderly female who is sitting up in a gurney, talking with her family at bedside, in good spirits. HEAD: Normocephalic, atraumatic. EYES: Extraocular muscles are grossly intact. Pupils equal, round, with decreased reactivity to light bilaterally and are asymmetric bilaterally. This is chronic. Patient also noted bilateral lens reflex appreciated. No scleral icterus, conjunctival injection. ENT: Mucous membranes appear moist. Dentition is in fair condition , but intact. No oropharyngeal erythema or exudates. NECK: Supple. Trachea midline. CV: Regular rate and rhythm. No murmurs, rubs, or gallops appreciated. RESPIRATORY: Unlabored breathing. Lungs are clear to auscultation bilaterally. No wheezes, rales, or rhonchi. ABDOMEN: Obese, soft. Slight tenderness to palpation over patient's large ventral hernia. With positive bowel sounds. Patient with some areas of erythema in a vascular pattern that she reports is chronic discoloration. : No suprapubic tenderness to palpation. No Richards catheter in place. EXTREMITIES: No cyanosis , clubbing, or edema appreciated. 1+ pedal pulses bilaterally. NEURO: Cranial nerves 2-12 intact, symmetric bilaterally. Patient is awake, alert, and oriented x4 at this time. She overall has quite a poor memory regarding her medications and also she is repetitive, asking why she has these episodes of confusion despite being told that these are suspected to be postictal state after seizure. She is not agitated. She is otherwise pleasant and redirectable. LABORATORY STUDIES: WBC 7.56, hemoglobin 13.0, hematocrit 31.0, platelet count is 274, neutrophil percent 61.1. No bands. PT is 13.1. INR 0.97. Sodium is 145, potassium is 4.4, chloride 109, CO2 is 20, anion gap is 16, creatinine 1.9 , GFR 25, glucose 91, calcium 8.5. Troponin is negative. IMAGING: Chest x-ray image report reviewed myself. No focal consolidation, pneumothorax, pleural effusion. Heart size normal. Calcified hilar nodes suspected. No acute findings in the chest. CT head without contrast negative for intracranial findings; moderate to severe diffuse cerebral atrophy; bilateral occipital encephalomalacia, left greater than right. No intracranial hemorrhage. No mass effect or midline shift. Patchy white matter hypodensities likely related to chronic microvascular ischemic gliosis. EKG, reviewed myself, showing normal sinus rhythm in the 70s. No acute ST changes. QTc is 462. ASSESSMENT AND PLAN: 81-year-old female with significant history for cerebrovascular accident, paroxysmal atrial fibrillation, and history of seizures, who presents to the emergency department today following an episode of altered mental status, confusion, aphasia, and tonic-clonic activity. 1. Altered mental status at this time is resolved and patient is back to her baseline per the daughter. The patient likely experienced a seizure at home followed by a prolonged postictal state. It sounds like patient has been not consistent with her evening time medications due to her declining memory. There is a plan for after discharge that the daughter will be supervising all medication administration times from here on out. Patient is receiving IV Keppra. Neurology will be consulted for further recommendations. [facility] also with high suspicion for seizure activity more so than acute CVA. She had rapidly resolving symptoms, is not candidate for tPA. The patient will be monitored on the neurology floor for observation at this time. Again, mentation appears to be baseline, but patient does note some declining memory. 2. Seizures, as noted above. Patient without any focal deficits at this time. She is oriented and at her baseline. We will monitor her closely, place on seizure precautions and bed alarm. 3. History of paroxysmal atrial fibrillation, currently in normal sinus rhythm. Plan to continue patient's Aggrenox. 4. Accelerated hypertension. Blood pressures have improved as patient's mentation also has improved. She has also received a dose of hydralazine. We will leave this available p.r.n. and plan to resume patient's home medications. Again, she has been inconsistent with some of her evening time medications and we will try to ensure maximized treatment for her blood pressure, especially with a history of hypertensive encephalopathy. 5. Chronic kidney disease stage 3. Baseline is 1.5, currently slightly elevated. No recent labs since January of 2017 so unsure if this is the patient' s new baseline with her history of poorly controlled hypertension. We will plan to repeat in the morning. She has passed swallow and can orally hydrate. 6. Hypothyroidism. Continue patient's levothyroxine. 7. Hyperlipidemia. Resume statin. 8. Glaucoma. Continue timolol drops if patient should stay additional night. 9. History of large ventral hernia. Supportive care. 10. Memory decline and mild dementia. Redirection and supportive care. 11. Fluid, electrolyte, nutrition: Oral hydration will be encouraged. Electrolytes will be monitored. Replace if needed. Advancing diet to cardiac as tolerated. 12. Prophylaxis: Heparin in setting of chronic kidney disease, SCDs. 13. Code status is full. The patient does not desire any prolonged life support. Daughter is MDPOA. 14. Disposition: Patient has been admitted to observation at this time on the neurology floor pending additional recommendations and/or need for further monitoring. /[id number]/MODL MTDD
[2017-09-30 05:31] LABS: PLATELET COUNT 247 10^3/uL (150-400)
--- NOTE | 2017-09-30 09:48 | NEUROPROG ---
Assessment: [id number] - Neurology Consult: - CC: Dr. Lisette Grimm consulted neurology for a seizure. Results placed in the EMR for her review. - Narrative Summary: This patient was initially seen 02/13/17. She was admitted 02/12/17 for an episode of altered awareness. The patients daughter witnessed the event and provided most of the history. Her daughter witnessed the patient walking out of the bathroom with her left leg shaking. The patient required help to get to a chair and sit down. The patients arms then started shaking so the daughter called 911. The patient was confused during the event but denied any focal neurologic deficits. She was admitted to [facility] in October 2016 for an episode of nonspecific shaking and problems producing speech for 5 minutes followed by left sided weakness. It was also reported at that time that the patient had prior history of recurrent spells of altered awareness but that prior seizure evaluation had been unremarkable. A stroke evaluation at that time was unremarkable except for the telemetry showing afib. She has prior bilateral occipital strokes causing cortical blindness so I suspect her afib was the cause. The patient reported she had been on coumadin in the past but this was stopped and she was changed to aspirin and aggrenox after being admitted to [facility] in [place], [place] in the past. Her daughter believes she likely had bleeding that prevented continuing the coumadin. She also has chronic neck and back pain so the hospitalist ordered C/L MRIs to further evaluate. Her blood pressure was elevated on admission but that has improved. Cervical and Lumbar MRIs showed no significant changes. Pt was told to f/u with me in the outpatient setting but she did not. - HPI: On 09/29/17 evening the patient reported not feeling well and then fell over with eye fluttering and some tonic clonic jerking (witnessed by daughter). She awoke with postictal confusion. EMS brought the patient to the [facility] ER where she returned to her baseline (confirmed by her daughter). Her daughter reported the patient was only intermittently compliant with taking levetiracetam (Keppra). The patients daughter reported witnessing multiple similar seizure like events in the past few months for which the patient has declined going to the ER. Head CT at the ER showed no acute changes. I initially saw the patient on 09/30/17. She reported missing her evening medications for the past 3 nights (she said she forgot to go downstairs and take them). 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 She denied any new complaints. - PMHx: prior bilateral occipital strokes causing cortical blindness, paroxysmal afib (pt reported not able to continue coumadin for stroke prevention in past due to bleeding), HTN, hypothyroid, CKD, macular degeneration, ventral hernia, previous abdominal surgeries, gastric perforation and bypass, partial colectomy - Home Meds: levetiracetam 500 mg bid, benadryl, norvasc, timolol, omeprazole, metoprolol, levothyroxine, atorvastatin, ASA w/dipyridamole (Aggrenox) - SHx: lives with daughter FHx: no seizures - ROS: Pt denied acute fever, total vision loss, active severe chest pain, respiratory failure, total body severe rash, total bowel/bladder incontinence, psychosis, active seizures, or active bleeding - O: VS reviewed General: Alert Eyes: Fundoscopic exam not able to visualize optic disks CV: Heart RRR, no murmur, no carotid bruit Lungs: Clear to auscultation bilaterally, no rhonchi or rales Neuro: - Mental: . Oriented x person/place but not date . concentration appears normal . speech fluency/comprehension normal . memory appears normal . fund of knowledge appear intact - Cranial Nerves: . II: Pt with cortical blindess, pupils appeared normal . III/IV/: EOMI, no nystagmus, normal smooth pursuits, no Ptosis . V: facial sensation intact to LT . VII: face symmetric to eye closure and smile . VIII: hearing intact to conversation . IX/X: uvula raises symmetrically . XI: SCM 5/5 B/L strength . XII: tongue protrudes midline w/nl strength - Motor: . Tone: normal tone in all 4 extremity . Strength: no pronator drift, strength 5/5 throughout (B/L delt, bic, tri, hand registered diet technician, hf/he, df/pf) - Reflexes: B/L bic 2/4 - Sensory: all 4 extremity intact to light touch - Coord: GAVIN wnl - Gait: deferred - Labs: 09/29/17- CBC unremarkable, Chem CO2 20L Cr 1.9H, Utox neg - Rads: 11/02/16- Brain MRI w/o con: no acute stroke, old B/L occipital stroke, extensive CMVD, atrophy 11/02/16- brain/neck MRA: no significant findings 11/01/16- TTE: afib seen 11/02/16- 24 hour telemetry: no afib seen 02/12/17- MRI C-spine w/o con: Overall mild degenerative cervical spine disease at multiple levels 02/12/17- MRI L-spine w/o con: Interval worsening of spondylolisthesis at L2-L3. However, this did not contribute to worsening canal stenosis. Otherwise, multilevel degenerative disk and facet disease all of which are relatively unchanged compared to 2014. 09/29/17- Head CT: no acute intracranial findings, old left occipital stroke, (I personally visualized the images on 09/30/17) - Assessment: 1. Prior Bilateral Occipital Stroke: Prior stroke evaluation in October 2016 reported to be unremarkable (except her vital sign review in October 2016 did report seeing afib). - 2. Paroxysmal Afib: Pt and her daughter reported she was on coumadin in the past but that [facility] stopped the coumadin and changed her to Aggrenox plus aspirin. The daughter believes this was due to a bleeding complication. - 3. Vascular Dementia: Mild memory problems that are stable per patient - 4. Seizure Disorder likely from prior strokes: Last seizure on 09/29/17 due to medical noncompliance, patient now back to baseline following seizure. Her daughter (who patient lives with) has discussed a plan with hospitalist to ensure she monitors that the patient will take her correct dose of levetiracetam. - Plan: - Patient no longer drives - Agree with levetiracetam 500 mg bid for seizure prevention - Agree with Aggrenox for stroke prevention in pAfib given she had bleeding complications to coumadin in the past - Work with PCM to ensure blood pressure < 140/90, H1AC < 7.0, and LDL < 70 (pt on statin) - F/U in neurology clinic in 2-4 weeks to assess status - No further neurology w/u needed, Neurology will sign off but will be happy to become re-involved if needed Objective: Vital Signs Temp Pulse Resp BP Pulse Ox 36.7 C 77 18 160/85 H 93 09/30/17 08:00 09/30/17 08:00 09/30/17 08:00 09/30/17 08:00 09/30/17 08:00 Laboratory Results 09/30/17 04:40 09/30/17 04:40 09/29/17 09/30/17 10/01/17 05:59 05:59 05:59 Output Total 350 Balance -350 PT 13.1 SEC (12.0-15.0) 09/29/17 23:27 INR 0.97 (0.83-1.16) 09/29/17 23:27 Allergies/Adverse Reactions: Penicillins Allergy (Unknown, Verified 09/29/17 23:32) Doesn't Remember RXN BEES Allergy (Uncoded 09/29/17 23:32) TAPE Allergy (Uncoded 09/29/17 23:32)
[2017-09-30 12:03] VITALS: BP 177/84; PULSE 86; RESP 16; TEMP 98.2; O2SAT 97
[2017-09-30] MEDS ORDERED: amLODIPine BESYLATE 5 MG TAB PO SCH (13:00)
[2017-09-30] MEDS ORDERED: LEVOTHYROXINE 125 MCG TAB PO SCH (13:00)
[2017-09-30] MEDS ORDERED: levETIRAcetam 500 MG TAB PO SCH (13:00)
[2017-09-30] MEDS ORDERED: ASPIRIN/DIPYRIDAMOLE CAPSULE PO SCH (13:00)
[2017-09-30] MEDS ORDERED: METOPROLOL TARTRATE 25 MG TAB PO SCH (13:00)
--- NOTE | 2017-09-30 15:02 | ASMTCMCOM ---
CM Note CM Note Notes: Pt medically stable for d/c, no CM d/c needs identified. Pt dghtr will assist with medication management. Date Signed: 09/30/2017 03:01 PM Electronically Signed By:MITUL Meyer
[2017-09-30] MEDS ORDERED: MELATONIN 3 MG TAB PO SCH (21:00)
--- NOTE | 2017-09-30 22:46 | GDS ---
[f rep st] DISCHARGE SUMMARY DISCHARGE DIAGNOSES: Include. 1. Acute encephalopathy secondary to seizure. 2. Seizure. 3. History of cerebral vascular disease. 4. Paroxysmal atrial fibrillation. HISTORY OF PRESENT ILLNESS: An 81-year-old female, who presents to the emergency department with com plaints of confusion and abnormal physical movements. For details of patient's initial presentation, please see the history and physical dated 09/29/2017. CONSULTATIVE SERVICES: Include Neurology. PROCEDURES: None. HOSPITAL COURSE BY ISSUE: 1. Acute seizure. Patient was already on seizure prophylaxis. The patient had medication noncompli ance in the home. Was found to have tonic clonic movements consistent with seizure When the EMS was responding to the home. Suspect that she was likely subtherapeutic on her outpatient medications. S he was loaded with IV Keppra will be continued on Keppra 500 p.o. twice daily, per Neurology recommen dation. She is to follow with Neurology in the next 2-4 weeks for her first post disposition followu p. 2. Acute encephalopathy, thought likely secondary to seizure with a postictal period. Patient did n ot have focal neurologic deficits after resolution of her acute seizure. She is at her baseline ment ation. Morning after admission, she has been seen and cleared by Neurology to return home. Both y sical therapy and occupational therapy have additionally assessed and feel the patient is safe to ret urn home without additional assistance. MEDICATIONS AT THE TIME OF DISPOSITION: Please reference med rec printed on 09/30/2017. FOLLOWUP APPOINTMENTS: Include with Dr. Clancy from Neurology in the next 2-4 weeks for post dispositi on neurologic followup. PENDING STUDIES: At the time of this dictation are none. TIME SPENT: I spent greater than 30 minutes in the planning and coordination of this discharge. /[id number]/MODL
== END 2017-09-30 14:02 | disposition home or self-care (01) ==
LOC: EDUNIT# → F3N 09-30 00:41
PROVIDERS: ADMIT Family Medicine; ATTEND Family Medicine
DX: G40.409 Other generalized epilepsy and epileptic syndromes, not intractable, without status epilepticus (principal); I12.9 Hypertensive chronic kidney disease with stage 1 through stage 4 chronic kidney disease, or unspecified chronic kidney disease; N18.3 Chronic kidney disease, stage 3 (moderate); E03.9 Hypothyroidism, unspecified; I48.0 Paroxysmal atrial fibrillation; Z86.73 Personal history of transient ischemic attack (TIA), and cerebral infarction without residual deficits; Z91.81 History of falling; H40.9 Unspecified glaucoma
CPT/HCPCS: 70450; 71045; 93005; 97165; G0378; G8987; G8988; G8989; J0360; J1644; J1953; 80305; 82947-QW; 96374